=== PATIENT | female | born 1960 | race Caucasian/White ===

== ENCOUNTER 2022-10-01 13:23 | Inpatient (IN) | payer BC, OTHER ==
[2022-10-01] MEDS ORDERED: SODIUM CHLORIDE 0.9% 1,000 ML IV STA (13:24)
--- NOTE | 2022-10-01 13:30 | ED ---
Chest Pain HPI - General Chief Complaint: Chest Pain Stated Complaint: poss stemi Time Seen by Provider: 10/01/22 13:24 Source: EMS, RN notes reviewed, old records reviewed Mode of arrival: EMS Limitations: no limitations - History of Present Illness Initial Comments: This is a 62-year-old female who presents today for evaluation regards to chest pain. Patient is severe sudden onset of heaviness chest pain nausea and sweating. Persistent shortness of breath. History of diabetes no history of prior heart attack. Patient's history currently is limited by impending condition MD Complaint: chest pain -: hour(s) Onset: during rest, during exertion Pain Location: substernal, left chest, epigastric Pain Radiation: none Severity: severe Severity scale (1-10): 9 Quality: tightness, heaviness Consistency: constant Improves With: nothing Worsens With: nothing Anginal Symptoms: sense of impending doom Other Symptoms: palpitations Treatments Prior to Arrival: none - Related Data Previous Rx's Medication Instructions Recorded Acetaminophen Tab [Tylenol] 650 mg PO Q6HR PRN tab 10/04/22 Aspirin 81 mg PO DAILY #30 tab 10/04/22 Atorvastatin [Lipitor] 80 mg PO HS #30 tab 10/04/22 Blood Sugar Diagnostic [Glucose 1 each MC BID #60 strip 10/04/22 Test Strip] Dapagliflozin Propanediol [Farxiga] 5 mg PO DAILY #30 tab 10/04/22 Metoprolol Tartrate [Lopressor] 25 mg PO BID #60 tab 10/04/22 Nitroglycerin Sl Tabs [Nitrostat] 0.4 mg SUBLINGUAL Q5M PRN #20 tab 10/04/22 Prasugrel [Effient] 10 mg PO DAILY #30 tab 10/04/22 Spironolactone [Aldactone] 25 mg PO DAILY #30 tab 10/04/22 lisinopriL [Zestril] 2.5 mg PO BID #60 tab 10/04/22 metFORMIN HCL [Glucophage] 500 mg PO BID #60 tab 10/04/22 Allergies Allergy/AdvReac Type Severity Reaction Status Date / Time No Known Allergies Allergy Verified 10/01/22 16:28 Review of Systems ROS Statement: Those systems with pertinent positive or pertinent negative responses have been documented in the HPI. ROS Other: All systems not noted in ROS Statement are negative. EKG Findings - EKG Comments: EKG Findings:: EKG is sinus 79 MN 163 QRS 90 QTC 439. EKG showed positive anterior ST elevated NJ with inferior reciprocal changes - EKG Results: EKG: interpreted by LILLIANA Past Medical History Past Medical History: Diabetes Mellitus Additional Past Medical History / Comment(s): RECENT INPT FOR COLITIS AND INFLUENZA 04/17/14. NEW DX DIABETES History of Any Multi-Drug Resistant Organisms: None Reported Past Surgical History: Section, Cholecystectomy, Orthopedic Surgery, Tubal Ligation Additional Past Surgical History / Comment(s): LT KNEE SURGERY Past Anesthesia/Blood Transfusion Reactions: No Reported Reaction Past Psychological History: No Psychological Hx Reported Past Alcohol Use History: Occasional Past Drug Use History: None Reported - Past Family History Mother Family Medical History: Congestive Heart Failure (CHF) General Exam Limitations: no limitations General appearance: alert, anxious, in distress Head exam: Present: atraumatic, normocephalic, normal inspection Eye exam: Present: normal appearance, PERRL, EOMI. Absent: scleral icterus, co njunctival injection, periorbital swelling ENT exam: Present: normal exam, mucous membranes moist Neck exam: Present: normal inspection. Absent: tenderness, meningismus, lymphadenopathy Respiratory exam: Present: normal lung sounds bilaterally. Absent: respiratory distress, wheezes, rales, rhonchi, stridor Cardiovascular Exam: Present: regular rate, normal rhythm, normal heart sounds. Absent: systolic murmur, diastolic murmur, rubs, gallop, clicks GI/Abdominal exam: Present: soft, normal bowel sounds. Absent: distended, tenderness, guarding, rebound, rigid Extremities exam: Present: normal inspection, full ROM, normal capillary refill. Absent: tenderness, pedal edema, joint swelling, calf tenderness Back exam: Present: normal inspection Neurological exam: Present: alert, oriented X3, CN II-XII intact Psychiatric exam: Present: normal affect, normal mood Skin exam: Present: warm, dry, intact, normal color. Absent: rash Course Vital Signs 10/01/22 10/01/22 13:24 13:38 Temperature 98.2 F Pulse Rate 86 82 Respiratory 20 20 Rate Blood Pressure 160/102 127/86 O2 Sat by Pulse 97 97 Oximetry - Reevaluation(s) Reevaluation #1: 10/01/22 13:38 Medical records reviewed Reevaluation #2: 10/01/22 13:38 Patient symptoms are relatively unchanged active nausea vomiting with chest pain diaphoresis Reevaluation #3: 10/01/22 13:38 Patient informed of results, questions answered Reevaluation #4: 10/01/22 13:38 Was pt. sent in by a medical professional or institution? @ -no Did you speak to anyone other than the patient for history? @ -no Did you review nursing and triage notes? @ -agree Were old charts reviewed? @ -no Differential Diagnosis? @ -prior EKG interpreted by me (3pts min.)? @ -yes X-rays interpreted by me (1pt min.)? @ -yes CT interpreted by me (1pt min.)? @ -no U/S interpreted by me (1pt. min.)? @ -no What testing was considered but not performed? (CT, X-rays, U/S, labs)? Why? @ -no What meds were considered but not given? Why? @ -no Did you discuss the management of the patient with other professionals? @ -no Did you reconcile home meds? @ -no Was smoking cessation discussed for >3mins.? @ -no Was critical care preformed (if so, how long)? @ -no Were there social determinants of health that impacted care today? How? (Homelessness, low income, unemployed, alcoholism, drug addiction, transportation, low edu. Level, literacy, decrease access to med. care, usp, rehab)? @ -no Was there de-escalation of care discussed even if they declined? (Discuss DNR or withdrawal of care, Hospice)? @ -no What co-morbidities impacted this encounter? (DM, HTN, Smoking, COPD, CAD, Cancer, CVA, Hep., AIDS, mental health diagnosis, sleep apnea, morbid obesity)? @ -none Was patient admitted / discharged? @ -62 female to the emergency department was severe chest pain. Patient has ST elevated NJ prehospital EKG with nausea vomiting here in the ER patient be admitted and sent to the catheterization lab Admitted Undiagnosed new problem with uncertain prognosis? @ -no Drug Therapy requiring intensive monitoring for toxicity (Heparin, Nitro, Insulin, Cardizem)? @ -no Were any procedures done? @ -no Diagnosis/symptom? @ -ST EOMI Acute, or Chronic, or Acute on Chronic? @ -no Uncomplicated (without systemic symptoms) or Complicated (systemic symptoms)? @ -uncomplicated Side effects of treatment? @ -no Exacerbation, Progression, or Severe Exacerbation] @ -no Poses a threat to life or bodily function? @ -Gas ST elevated NJ Reevaluation #5: 10/01/22 13:38 Differential Chest Pain: Stable Angina, Unstable Angina, STEMI, NSTEMI Aortic Dissection, Pneumothorax, Musculoskeletal, Esophageal Spasm GERD, Cholecystitis, Pancreatitis, Zoster, this is not meant to be an all-inclusive list. - Consultations Consultation #1: Spoke with Dr. Oates he does see patient in the emergency department and takes to label cutter Consultation #2: Spoke with [facility] regarding admission there agreeable Chest Pain MDM - MDM 62 female to the emergency department for evaluation of chest pain history of diabetes left-sided chest. Sudden onset. Patient states that she has persistent left-sided chest pain here in the ER with active nausea vomiting although pain is improving. Patient does have ST elevated NJ on EKG and will admit for cardiac catheterization Critical Care Time Critical Care Time: Yes Total Critical Care Time: 31 Disposition Clinical Impression: ST elevation myocardial infarction (STEMI) Disposition: ADMITTED IP TO THIS HOSP Condition: Stable Is patient prescribed a controlled substance at d/c from ED?: No Time of Disposition: 13:35
[2022-10-01] MEDS ORDERED: ONDANSETRON 4 MG/2 ML VIAL IVP STA (13:34)
[2022-10-01] MEDS ORDERED: MORPHINE SULFATE 4 MG/ML SYRINGE IV PRN (13:35)
[2022-10-01] MEDS ORDERED: HEPARIN SODIUM 1,000 UN/ML (10ML VL) IV ONE ×2 (13:35→13:57)
[2022-10-01] MEDS ORDERED: NITROGLYCERIN SL TABS 0.4 MG TAB SUBLINGUAL PRN ×2 (13:35→14:34)
[2022-10-01] MEDS: HEPARIN SODIUM 1,000 UN/ML (10ML VL) MISCELLANE ONE ×2 (13:35→13:44)
[2022-10-01] MEDS ORDERED: HYDROmorphone 1 MG/ML 1 ML SYRINGE IVP STA (13:36)
[2022-10-01 13:37] LABS: Glucose,Whole Blood 308 mg/dL (70-110)
[2022-10-01] MEDS ORDERED: fentaNYL (PF) 50 MCG/ML 2 ML AMP ONE (13:37)
[2022-10-01] MEDS ORDERED: HEPARIN SOD,PORK IN 0.45% NACL 25,000 UNIT in 0.45% NACL 1 250ML.BAG IV SCH (13:45)
[2022-10-01 13:47] LABS: Basophils # (A) 0.1 k/uL (0-0.2); Basophils % (A) 1 %; Eosinophils # (A) 0.2 k/uL (0-0.7); Eosinophils % (A) 3 %; HGB 15.4 gm/dL (11.4-16.0); Lymphocytes # (A) 3.2 k/uL (1.0-4.8); Lymphocytes % (A) 41 %; MCH 30.2 pg (25.0-35.0); MCHC 33.6 g/dL (31.0-37.0); Mean Platelet Volume 7.2; Monocytes # (A) 0.4 k/uL (0-1.0); Monocytes % (A) 5 %; Neutrophils # (A) 3.6 k/uL (1.3-7.7); Neutrophils % (A) 47 %; Platelet Count 268 k/uL (150-450); RBC 5.11 m/uL (3.80-5.40); RDW 12.4 % (11.5-15.5); WBC 7.8 k/uL (3.8-10.6)
[2022-10-01] MEDS ORDERED: IV FLUID CONTINUATION 1,000 ML IV ONE (13:47)
[2022-10-01] MEDS ORDERED: LIDOCAINE 1% INJ 10MG/ML (5 ML VIAL-PF) SQ ONE (13:50)
[2022-10-01] MEDS ORDERED: VERAPAMIL SYRINGE (5 MG/10 ML) INTRAARTER ONE (13:51)
[2022-10-01] MEDS ORDERED: PRASUGREL 10 MG TAB ONE (13:57)
[2022-10-01] MEDS ORDERED: PRASUGREL 10 MG TAB PO ONE (13:59)
[2022-10-01] MEDS ORDERED: MIDAZOLAM 2 MG/2 ML VIAL IV ONE (14:00)
[2022-10-01 14:05] LABS: ALT 23 U/L (4-34); AST 27 U/L (14-36); African American GFR (CKD) >90 (>60 ml/min/1.73 sqM); Alkaline Phosphatase 139 U/L (38-126); Anion Gap 13 mmol/L; Blood Urea Nitrogen 12 mg/dL (7-17); Calcium 8.6 mg/dL (8.4-10.2); Carbon Dioxide 17 mmol/L (22-30); Chloride 102 mmol/L (98-107); Glucose 319 mg/dL (74-99); Lipase 123 U/L (23-300); Magnesium 1.5 mg/dL (1.6-2.3); Non-African American GFR(CKD) >90 (>60 ml/min/1.73 sqM); Potassium 3.9 mmol/L (3.5-5.1); Sodium 132 mmol/L (137-145); Total Bilirubin 0.8 mg/dL (0.2-1.3); Total Protein 7.2 g/dL (6.3-8.2)
[2022-10-01 14:06] LABS: Prothrombin Time 10.1 sec (9.0-12.0)
--- NOTE | 2022-10-01 14:10 | XR ---
EXAMINATION TYPE: XR chest 1V portable DATE OF EXAM: 10/01/2022 1:37 PM COMPARISON: Chest radiographs from 04/17/2014 TECHNIQUE: XR chest 1V portable Frontal view of the chest. CLINICAL INDICATION:Female, 62 years old with history of chest pain; FINDINGS: Lungs/Pleura: There is no evidence of pleural effusion, focal consolidation, or pneumothorax. Pulmonary vascularity: Unremarkable. Heart/mediastinum: Cardiomediastinal silhouette is unremarkable. Musculoskeletal: No acute osseous pathology. IMPRESSION: Low lung volumes with a generalized hazy appearance to represent atelectasis.
[2022-10-01 14:17] LABS: Partial Thromboplastin Time 20.2 sec (22.0-30.0)
[2022-10-01] MEDS ORDERED: IOPAMIDOL-370 100ML BTL INJ ONE ×2 (14:25)
[2022-10-01] MEDS ORDERED: ONDANSETRON 4 MG/2 ML VIAL IVP ONE (14:32)
[2022-10-01] MEDS ORDERED: MAG HYDROX/AL HYDROX/SIMETH 30 ML CUP PO PRN (14:34)
[2022-10-01] MEDS ORDERED: RX INFO: IV CONTRAST WAS GIVEN 1 EACH MISC MISCELLANE PRN (14:34)
[2022-10-01] MEDS ORDERED: ZOLPIDEM 5 MG TAB PO PRN (14:34)
[2022-10-01] MEDS ORDERED: ATROPINE SULFATE 0.1 MG/ML 10ML SYRINGE IV PRN (14:34)
[2022-10-01 14:43] LABS: Glucose,Whole Blood 345 mg/dL (70-110)
--- NOTE | 2022-10-01 14:44 | P.CRDCN ---
History of Present Illness Consult date: 10/01/22 History of present illness: History of Present Illness: The patient is a 62-year-old female with a history of diabetes, does not follow with her physician does not take any medications who presented with acute onset chest discomfort with dyspnea and was found to have evidence of acute anterior wall myocardial infarction. The patient was evaluated in the cardiac blossom terization laboratory. She has no prior history of cardiac disease. Has not seen a physician in a while. She has no peripheral edema, PND or orthopnea. She denies any dizziness, palpitations or syncope. She has a remote history of smoking but not recently. She has no history of malignant arrhythmia. Medications: Non- Review of Systems: Respiratory: No history of asthma, bronchitis or recent cough. GI: No nausea or vomiting . No history of peptic ulcer disease. No recent GI bleed. : No hematuria or dysuria. Nervous System: No stroke or seizure. Physical Examination: 62-year-old female alert, oriented having severe chest discomfort ,Blood pressure 130/70, Heart rate 70 Head: Normocephalic. Eyes: Sclerae nonicteric. Neck: Good carotid upstroke, no bruit, no jugular venous distention. Lungs: Clear to auscultation. Heart: Regular rate and rhythm, S1-S2, no S3, no rub. No murmur. Abdomen: Soft nontender, positive bowel sounds no organomegaly. Obese Extremities: No edema, intact distal pulses. Labs: Hemoglobin 15.4, BUN 12, creatinine 0.49, glucose 319. Troponin 0.054. Chest x-ray was possible atelectasis EKG: Sinus mechanism with ST elevation in lead 1, aVL and V1 and V2 consistent with anterolateral myocardial infarction with ST depression and T-wave inversion in lead 3 and aVF Impression: 1. Acute anterior wall myocardial infarction 2. Diabetes, not treated 3. Obesity Plan: 1. Proceed with emergent cardiac catheterization, the risks and the complications were discussed with the patient 2. Obtain an echocardiogram with Doppler 3. Management of diabetes per primary care physician 4. Depending on the outcome of her cardiac catheterization further recomme ndations will be made 5. Thank you for this consult we will follow with you Past Medical History Past Medical History: Diabetes Mellitus Additional Past Medical History / Comment(s): RECENT INPT FOR COLITIS AND INFLUENZA 04/17/14. NEW DX DIABETES History of Any Multi-Drug Resistant Organisms: None Reported Past Surgical History: Section, Cholecystectomy, Orthopedic Surgery, Tubal Ligation Additional Past Surgical History / Comment(s): LT KNEE SURGERY Past Anesthesia/Blood Transfusion Reactions: No Reported Reaction Past Psychological History: No Psychological Hx Reported Past Alcohol Use History: Occasional Past Drug Use History: None Reported - Past Family History Mother Family Medical History: Congestive Heart Failure (CHF) Medications and Allergies Home Medications Medication Instructions Recorded Confirmed Type Dapagliflozin Propanediol [Farxiga] 5 mg PO DAILY 06/05/14 06/05/14 History Allergies Allergy/AdvReac Type Severity Reaction Status Date / Time No Known Allergies Allergy Verified 06/05/14 10:18 Physical Exam Vitals: Vital Signs Temp Pulse Resp BP Pulse Ox 10/01/22 13:38 82 20 127/86 97 10/01/22 13:24 98.2 F 86 20 160/102 97 Intake and Output 09/30/22 10/01/22 10/01/22 22:59 06:59 14:59 Intake Total 150 Balance 150 Intake: IV 150 Other: Weight 92.079 kg Results 10/01/22 13:25 10/01/22 13:25 Cardiac Enzymes 10/01/22 10/01/22 Range/Units 13:25 13:25 AST 27 (14-36) U/L Troponin I 0.054 H* (0.000-0.034) ng/mL Coagulation 10/01/22 Range/Units 13:25 PT 10.1 (9.0-12.0) sec APTT 20.2 L (22.0-30.0) sec CBC 10/01/22 Range/Units 13:25 WBC 7.8 (3.8-10.6) k/uL RBC 5.11 (3.80-5.40) m/uL Hgb 15.4 (11.4-16.0) gm/dL Hct 46.0 (34.0-46.0) % Plt Count 268 (150-450) k/uL Comprehensive Metabolic Panel 10/01/22 Range/Units 13:25 Sodium 132 L (137-145) mmol/L Potassium 3.9 (3.5-5.1) mmol/L Chloride 102 (98-107) mmol/L Carbon Dioxide 17 L (22-30) mmol/L BUN 12 (7-17) mg/dL Creatinine 0.49 L (0.52-1.04) mg/dL Glucose 319 H (74-99) mg/dL Calcium 8.6 (8.4-10.2) mg/dL AST 27 (14-36) U/L ALT 23 (4-34) U/L Alkaline Phosphatase 139 H (38-126) U/L Total Protein 7.2 (6.3-8.2) g/dL Albumin 4.0 (3.5-5.0) g/dL Current Medications Generic Name Dose Route Start Last Admin Trade Name Freq PRN Reason Stop Dose Admin Al Hydroxide/Mg Hydroxide 30 ml 10/01/22 14:34 Mag Hydrox/Al Hydrox/Simeth 30 Ml Cup PO Q4HR PRN Heartburn Aspirin 81 mg 10/02/22 09:00 Aspirin 81 Mg PO DAILY SCAR Aspirin 81 mg 10/02/22 09:00 Aspirin 81 Mg PO DAILY SCAR Atorvastatin Calcium 80 mg 10/01/22 21:00 Atorvastatin 80 Mg Tab PO 11/01/22 09:01 HS SCAR Atropine Sulfate 0.5 mg 10/01/22 14:34 Atropine Sulfate 0.1 Mg/Ml 10ml Syringe IV ONCE PRN Symptomatic Bradycardia Sodium Chloride 1,000 mls @ 100 mls/hr 10/01/22 13:24 10/01/22 13:34 Saline 0.9% IV 10/01/22 23:23 100 mls/hr .Q10H STA Administration Sodium Chloride 1,000 mls @ 100 mls/hr 10/01/22 13:45 Saline 0.9% IV 10/31/22 13:46 .Q10H SCAR Sodium Chloride 1,000 ml/ IV 1,000 mls @ 92.079 mls/hr 10/01/22 14:45 Solution IV 10/01/22 17:46 .[id number] SCAR 1 ML/KG/HR Lisinopril 2.5 mg 10/01/22 21:00 Lisinopril 2.5 Mg Tab PO BID SCAR Metoprolol Tartrate 25 mg 10/01/22 21:00 Metoprolol Tartrate 25 Mg Tab PO 10/31/22 21:01 BID [facility] Miscellaneous Information 1 each 10/01/22 14:34 Rx Info: Iv Contrast Was Given 1 Each Misc MISCELLANE 10/03/22 14:34 DAILY PRN Per Protocol Morphine Sulfate 4 mg 10/01/22 13:35 Morphine Sulfate 4 Mg/Ml Syringe IV 10/31/22 13:36 Q4HR PRN Chest Pain Nitroglycerin 0.4 mg 10/01/22 13:35 Nitroglycerin Sl Tabs 0.4 Mg Tab SUBLINGUAL 10/31/22 13:36 Q5M PRN Chest Pain Nitroglycerin 0.4 mg 10/01/22 14:34 Nitroglycerin Sl Tabs 0.4 Mg Tab SUBLINGUAL Q5M PRN Chest Pain Prasugrel 10 mg 10/02/22 09:00 Prasugrel 10 Mg Tab PO DAILY [facility] Protocol Spironolactone 25 mg 10/02/22 09:00 Spironolactone 25 Mg Tab PO DAILY [facility] Zolpidem Tartrate 5 mg 10/01/22 14:34 Zolpidem 5 Mg Tab PO HS PRN Insomnia Intake and Output 09/30/22 10/01/22 10/01/22 22:59 06:59 14:59 Intake Total 150 Balance 150 Intake: IV 150 Other: Weight 92.079 kg Patient Weight 10/02/22 06:59 Weight 92.079 kg 10/01/22 13:25 10/01/22 13:25
[2022-10-01] MEDS ORDERED: SODIUM CHLORIDE 0.9% 1,000 ML in EMPTY BAG 1 BAG IV SCH (14:45)
[2022-10-01] MEDS: SODIUM CHLORIDE 0.9% 1,000 ML IV SCH ×2 (14:49→23:23)
--- NOTE | 2022-10-01 14:52 | P.CARDCATH ---
Date of Procedure: 10/01/22 Description of Procedure: Cardiac Catheterization: The patient is a 62-year-old female with a history of diabetes, not treated, who presented with an acute episode of chest discomfort and EKG changes consistent with anterior wall myocardial infarction. Recommendations were made regarding cardiac catheterization, the risks and the complications were discussed with the patient who is in full understanding and agreement. Procedure Description: Patient was brought to quality assurance lab technician in fasting semi-sedated state after receiving Fentanyl and Benadryl achieiving moderate conscious sedated state. Using Xylocaine Anesthesia and Seldinger technique, a 6-Norwegian sheath was introduced in the right radial artery . Subsequently, selective coronary angiography was performed using a 5-Norwegian 3.5 bend Teja catheter and a 6-Norwegian EBU 3.75 guiding catheter. Multiple views of the coronary artery including hemiaxial views were obtained. The right Teja catheter was used to cross the aortic valve and LVEDP was calculated. PCI: Using the 6-Norwegian EBU 3.75 guiding catheter and after cannulating the left main, a 0.014 BMW J-wire was positioned in the distal LAD with the help of a fine cross microcatheter. After removing the microcatheter and 2.5 X 12 mm Treck balloon was advanced and multiple inflation at maximum of 8 abiola were done subsequently a [email or web address] eye intravascular ultrasound catheter was introduced and imaging was performed. After removing the catheter 3.0 x 38 mm Xience rakel point was deployed at 16 abiola. After removing the balloon repeat intravascular ultrasound was performed and subsequently a 3.5X20 mm NC Treck was advanced in the proximal segment of the stent and inflation at 12 abiola were done. After removing the wire images were obtained and revealed stable successful stenting. Subsequently images of the right coronary artery were performed. Following that, catheter and sheath were removed. Hemostasis was obtained with deployment of TR band . There was no immediate complication. Patient was returned to room in stable condition. Of note, the patient received a total of 4000 units of intravenous heparin as well as intra-arterial verapamil. She received an oral loading dose of Effient, her ACT was monitored. At the end of the procedure her chest discomfort has improved and her EKG has improved. Findings: Fluoroscopy: There is significant calcifications involving the LAD. Left main: This is a large size vessel, bifurcating into LAD and left circumflex, left main has no high-grade stenosis LAD: This vessel is subtotally occluded proximally and after the takeoff of the first septal bulk plant manager there is another 99% stenosis with slow antegrade flow. Left circumflex: This is a nondominant vessel giving rise to obtuse marginal branch, the first one is large in caliber. The mid segment of the first obtuse marginal branch has a 60-70% stenosis, there is another 80% stenosis at the takeoff of the small second obtuse marginal branch the rest of the vessel has no high-grade stenosis. RCA: This is a dominant vessel, large in caliber, bifurcating into PDA and PLV the mid RCA has 20-30% plaque, the rest of the vessel has no high-grade stenosis. Left Ventriculogram: Not performed Hemodynamics: There was no gradient across the aortic valve , LVEDP was 20-24 mm Hg Conclusion: 1. Calcified LAD 2. Subtotally occluded proximal and mid LAD 3. Moderate disease in OM1 and mild disease in mid RCA 4. Successful stenting of the LAD with reduction of stenosis from 99% to 0% with intravascular ultrasound imaging Recommendations: The patient will continue on aspirin and Effient for 1 year without any interruption in addition to aggressive coronary risks modifications. The findings and the recommendations were discussed with the patient and she is in full understanding and agreement. Duration of sedation is 35 minutes.
[2022-10-01] MEDS ORDERED: DEXTROSE 50% SYRINGE 50 ML IVP PRN ×2 (15:06)
[2022-10-01] MEDS ORDERED: ONDANSETRON 4 MG/2 ML VIAL IVP PRN (16:57)
[2022-10-01 17:00] LABS: Glucose,Whole Blood 324 mg/dL (70-110)
[2022-10-01] MEDS: INSULIN ASPART (NovoLOG) 100 UNIT/ML VIAL SQ SCH ×2 (17:01→20:55)
[2022-10-01] MEDS ORDERED: ACETAMINOPHEN TAB 325 MG TAB PO PRN (18:45)
[2022-10-01 20:20] LABS: Glucose,Whole Blood 267 mg/dL (70-110)
[2022-10-01] MEDS: ATORVASTATIN 80 MG TAB PO SCH (20:53)
[2022-10-01] MEDS: METOPROLOL TARTRATE 25 MG TAB PO SCH (20:53)
[2022-10-02 04:43] LABS: Mean Platelet Volume 7.4; Platelet Count 255 k/uL (150-450)
[2022-10-02 04:52] LABS: ALT 35 U/L (4-34); AST 207 U/L (14-36); African American GFR (CKD) >90 (>60 ml/min/1.73 sqM); Albumin 3.6 g/dL (3.5-5.0); Alkaline Phosphatase 95 U/L (38-126); Anion Gap 8 mmol/L; Blood Urea Nitrogen 12 mg/dL (7-17); Calcium 8.7 mg/dL (8.4-10.2); Carbon Dioxide 28 mmol/L (22-30); Chloride 99 mmol/L (98-107); Glucose 176 mg/dL (74-99); Non-African American GFR(CKD) >90 (>60 ml/min/1.73 sqM); Potassium 4.4 mmol/L (3.5-5.1); Sodium 135 mmol/L (137-145); Total Bilirubin 0.8 mg/dL (0.2-1.3); Total Protein 6.4 g/dL (6.3-8.2)
[2022-10-02 06:17] LABS: Glucose,Whole Blood 187 mg/dL (70-110)
[2022-10-02] MEDS: INSULIN ASPART (NovoLOG) 100 UNIT/ML VIAL SQ SCH ×5 (06:26→20:50)
--- NOTE | 2022-10-02 07:39 | P.PN ---
Subjective Progress Note Date: 10/02/22 PROGRESS NOTE The patient is a 62-year-old female with a history of diabetes, not followed by a physician who presented with an acute anterior wall myocardial infarction and underwent stenting of the LAD. She feels better today. She has no further anginal pain. Her breathing is stable. She continues to be in sinus mechanism and hemodynamically stable. She denies any dizziness or palpitations. Her EKG shows improvement in her ST segment elevation. Medications: Aspirin, the patellar 80 mg daily, Zestril 2.5 mg twice a day, metoprolol 25 mg twice a day, Aldactone 25 mg daily, Effient 10 mg daily in addition to insulin PHYSICAL EXAMINATION: Blood pressure 111/70 heart rate 70 LUNGS: Clear to auscultation HEART: Regular rate and rhythm, S1, S2. No S3. No systolic murmur ABDOMEN: Soft, nontender, no organomegaly EXTREMETIES: No edema, right radial pulse intact LAB: Potassium 4.4, BUN 12, creatinine 0.52. Troponin peak 26.8. Hemoglobin A1c 10.4 IMPRESSION: 1. Acute anterior wall myocardial infarction status post stenting of the LAD 2. Diabetes not treated prior to admission PLAN: 1. Continue present therapy 2. Treatment of diabetes per primary care 3. Increase physical activity and if stable transfer to telemetry in the afternoon 4. Obtain an echocardiogram with Doppler 5. Social service evaluation 6. Depending on her progress further recommendations will be made Objective - Vital Signs Vital signs: Vital Signs Temp 97.8 F 10/02/22 04:00 Pulse 77 10/02/22 07:00 Resp 15 10/02/22 07:00 BP 111/78 10/02/22 07:00 Pulse Ox 95 10/02/22 07:00 FiO2 Intake & Output 10/01/22 10/02/22 10/02/22 18:59 06:59 18:59 Intake Total 650 160 0 Output Total 900 Balance -250 160 0 Weight 92.079 kg 90 kg Intake: IV 150 160 0 0.9 160 0 Intake, IV Titration 500 Amount Sodium Chloride 0.9% 1, 500 000 ml In Empty Bag 1 bag @ 1 ML/KG/HR 92.079 mls/ hr IV .[id number] SCAR Rx#: [id number] Output: Urine 900 Other: Voiding Method Toilet # Voids 1 - Labs CBC & Chem 7: 10/02/22 03:44 10/02/22 03:44 Labs: Abnormal Lab Results - Last 24 Hours (Table) 10/01/22 10/01/22 10/01/22 Range/Units 13:25 13:25 13:25 APTT 20.2 L (22.0-30.0) sec Sodium 132 L (137-145) mmol/L Carbon Dioxide 17 L (22-30) mmol/L Creatinine 0.49 L (0.52-1.04) mg/dL Glucose 319 H (74-99) mg/dL POC Glucose (mg/dL) (70-110) mg/dL Hemoglobin A1c (0.0-6.0) % Magnesium 1.5 L (1.6-2.3) mg/dL AST (14-36) U/L ALT (4-34) U/L Alkaline Phosphatase 139 H (38-126) U/L Troponin I 0.054 H* (0.000-0.034) ng/mL 10/01/22 10/01/22 10/01/22 Range/Units 13:34 14:42 14:56 APTT (22.0-30.0) sec Sodium (137-145) mmol/L Carbon Dioxide (22-30) mmol/L Creatinine (0.52-1.04) mg/dL Glucose (74-99) mg/dL POC Glucose (mg/dL) 308 H 345 H (70-110) mg/dL Hemoglobin A1c (0.0-6.0) % Magnesium (1.6-2.3) mg/dL AST (14-36) U/L ALT (4-34) U/L Alkaline Phosphatase (38-126) U/L Troponin I 2.720 H* (0.000-0.034) ng/mL 10/01/22 10/01/22 10/01/22 Range/Units 14:56 16:59 18:16 APTT (22.0-30.0) sec Sodium (137-145) mmol/L Carbon Dioxide (22-30) mmol/L Creatinine (0.52-1.04) mg/dL Glucose (74-99) mg/dL POC Glucose (mg/dL) 324 H (70-110) mg/dL Hemoglobin A1c 10.4 H (0.0-6.0) % Magnesium (1.6-2.3) mg/dL AST (14-36) U/L ALT (4-34) U/L Alkaline Phosphatase (38-126) U/L Troponin I 26.800 H* (0.000-0.034) ng/mL 10/01/22 10/02/22 10/02/22 Range/Units 20:19 03:44 06:16 APTT (22.0-30.0) sec Sodium 135 L (137-145) mmol/L Carbon Dioxide (22-30) mmol/L Creatinine (0.52-1.04) mg/dL Glucose 176 H (74-99) mg/dL POC Glucose (mg/dL) 267 H 187 H (70-110) mg/dL Hemoglobin A1c (0.0-6.0) % Magnesium (1.6-2.3) mg/dL AST 207 H (14-36) U/L ALT 35 H (4-34) U/L Alkaline Phosphatase (38-126) U/L Troponin I (0.000-0.034) ng/mL
[2022-10-02] MEDS ORDERED: ATORVASTATIN 80 MG TAB PO SCH (09:00)
[2022-10-02] MEDS ORDERED: ASPIRIN 325 MG TAB PO SCH (09:00)
[2022-10-02] MEDS ORDERED: ASPIRIN 81 MG PO SCH (09:00)
[2022-10-02 09:27] LABS: HDL Cholesterol 49.1 mg/dL (40.00-60.00)
[2022-10-02] MEDS: PRASUGREL 10 MG TAB PO SCH (09:35)
[2022-10-02] MEDS: SPIRONOLACTONE 25 MG TAB PO SCH (09:35)
[2022-10-02] MEDS: ASPIRIN 81 MG PO SCH (09:35)
[2022-10-02] MEDS: METOPROLOL TARTRATE 25 MG TAB PO SCH ×2 (09:35→20:50)
[2022-10-02 10:11] VITALS: BMI 35.1
--- NOTE | 2022-10-02 10:34 | CA ---
Transthoracic Echo Report Name: Lorenza Cartagena Age: 62 Gender: F : 1960 Exam Date: 10/02/2022 08:41 Exam Location: [place] [facility] Ht (in): 63 Wt (lb): 203 Ordering Physician: Josselyn Oates MD ([id number]) Attending/Referring Phys: School Bus Technician Jose Juan Hunt Procedure CPT: Indications: [place] Cardiac Hx: Technical Quality: Technically difficult study Contrast 1: Lumason Total Dose (mL): 5 Contrast 2: Agitated Saline Total Dose (mL): 10 MEASUREMENTS (Male / Female) Normal Values 2D ECHO LV Diastolic Diameter PLAX 3.7 cm 4.2 - 5.9 / 3.9 - 5.3 cm LV Systolic Diameter PLAX 2.7 cm IVS Diastolic Thickness 1.5 cm 0.6 - 1.0 / 0.6 - 0.9 cm LVPW Diastolic Thickness 1.4 cm 0.6 - 1.0 / 0.6 - 0.9 cm LV Relative Wall Thickness 0.8 RV Internal Dim ED PLAX 2.8 cm LV Diastolic Volume MOD BP 52.9 cm??? 67 - 155 / 56 - 104 cm??? LV Systolic Volume MOD BP 30.7 cm??? 22 - 58 / 19 - 49 cm??? LV Ejection Fraction MOD BP 41.9 % >= 55 % LV Diastolic Volume MOD 4C 57.9 cm??? LV Systolic Volume MOD 4C 33.7 cm??? LV Ejection Fraction MOD 4C 41.7 % LV Diastolic Length 4C 6.8 cm LV Systolic Length 4C 6.0 cm LV Diastolic Volume MOD 2C 48.4 cm??? LV Systolic Volume MOD 2C 26.8 cm??? LV Ejection Fraction MOD 2C 44.7 % LV Diastolic Length 2C 6.8 cm LV Systolic Length 2C 5.7 cm LA Volume 42.9 cm??? 18 - 58 / 22 - 52 cm??? DOPPLER AV Peak Velocity 124.5 cm/s AV Peak Gradient 6.2 mmHg LVOT Peak Velocity 82.1 cm/s LVOT Peak Gradient 2.7 mmHg MV Peak Velocity 94.1 cm/s MV Peak Gradient 3.5 mmHg MV Mean Velocity 42.2 cm/s MV Mean Gradient 0.9 mmHg MV Velocity Time Integral 30.3 cm MR Peak Velocity 305.0 cm/s MR Peak Gradient 37.2 mmHg Mitral E Point Velocity 65.2 cm/s Mitral A Point Velocity 87.3 cm/s Mitral E to A Ratio 0.7 MV Deceleration Time 188.6 ms FINDINGS Left Ventricle Left ventricular ejection fraction is estimated at 35-40 %. Right Ventricle Normal right ventricular size. Right Atrium Normal right atrial size. Left Atrium Normal left atrial size. Mitral Valve Structurally normal mitral valve. Mild MR. Aortic Valve Not well visualized. Grossly normal. No aortic valve stenosis or regurgitation. Tricuspid Valve Structurally normal tricuspid valve. Trace TR. Pulmonic Valve Pulmonic valve not well visualized. No pulmonic regurgitation. Pericardium Normal pericardium. Aorta Normal size aortic root and proximal ascending aorta. CONCLUSIONS Moderate LV systolic dysfunction with an ejection fraction of 35-40% mild mitral regurgitation Previewed by: Dr. Riley Ambriz MD (Electronically Signed) Final Date: 02 October 2022 10:33
[2022-10-02] MEDS: SODIUM CHLORIDE 0.9% 1,000 ML IV SCH ×2 (10:51→16:34)
[2022-10-02 12:49] LABS: Glucose,Whole Blood 262 mg/dL (70-110)
--- NOTE | 2022-10-02 13:53 | P.HPIM ---
History of Present Illness H&P Date: 10/02/22 This is a 62 year old female with medical history significant for diabetes mellitus, never smoker. Patient presents to the hospital with complaints of chest pain with sudden onset, chest pain is reported as heaviness with associated with nausea and diaphoresis. No prior history of congestive heart failure, heart attack or stroke. Patient reports the pain was so severe at home decided to come to the hospital for further evaluation. Initial work up on EKG shows sinus rhythm with heart rate of 79, there is ST elevation in multiple leads. Troponin elevation of 0.054, 2.70 and 26.8. Patient was hyponatremic with a sodium 132 on admission, blood glucoses 319 on admission. Hemoglobin A1c is 10.4. Magnesium 1.5. Patient has elevated liver enzymes. Patient is admitted for acute ST elevation AL and taken to the cardiac engineer geophysical laboratory, patient was given aspirin. Patient had a sub-totally occluded proximal and mid LAD with moderate disease in OM1 and mild disease in the RCA, patient underwent s uccessful stenting of LAD reduction of stenosis from 99-0%. Patient has been started on aspirin and Effient dual antiplatelet therapy for 1 year as well as aggressive risk factor modification. Patient is evaluated in the intensive care unit is being followed closely by cardiology. States she was recently hospitalized for a cyst on her buttock and was diagnosed with diabetes a few months ago during that hospital stay. She was discharged home on insulin and was unable to afford it as she is on a fixed income, has not been on any diabetic medications. Denies smoking, no alcohol. Currently chest pain free at the time of my assessment. REVIEW OF SYSTEMS: CONSTITUTIONAL: No fever, no malaise, no fatigue. HEENT: No recent visual problems or hearing problems. Denied any sore throat. CARDIOVASCULAR: No chest pain, orthopnea, PND, no palpitations, no syncope. PULMONARY: No shortness of breath, no cough, no hemoptysis. GASTROINTESTINAL: No diarrhea, no nausea, no vomiting, no abdominal pain. NEUROLOGICAL: No headaches, no weakness, no numbness. HEMATOLOGICAL: Denies any bleeding or petechiae. GENITOURINARY: Denies any burning micturition, frequency, or urgency. MUSCULOSKELETAL/RHEUMATOLOGICAL: Denies any joint pain, swelling, or any muscle pain. ENDOCRINE: Denies any polyuria or polydipsia. The rest of the 14-point review of systems is negative. PHYSICAL EXAMINATION: GENERAL: The patient is alert and oriented x3, not in any acute distress. Well developed, well nourished. HEENT: Pupils are round and equally reacting to light. EOMI. No scleral icterus. No conjunctival pallor. Normocephalic, atraumatic. No pharyngeal erythema. No thyromegaly. CARDIOVASCULAR: S1 and S2 present. No murmurs, rubs, or gallops. PULMONARY: Chest is clear to auscultation, no wheezing or crackles. ABDOMEN: Soft, nontender, nondistended, normoactive bowel sounds. No palpable organomegaly. MUSCULOSKELETAL: No joint swelling or deformity. EXTREMITIES: No cyanosis, clubbing, or pedal edema. NEUROLOGICAL: Gross neurological examination did not reveal any focal deficits. SKIN: No rashes. Assessment Chest pain secondary to acute ST elevation AL status post stenting of LAD Troponin elevation secondary to above Diabetes mellitus type 2 uncontrolled with hemoglobin A1c of 10.4, recently diagnosed Hyponatremia Hypomagnesemia Morbidy obesity with BMI of 35.1 Prophylaxis DVT prophylaxis Full Code Plan Echocardiogram pending Patient is on dual antiplatelet therapy as well as Lipitor Patient was started on lisinopril 2.5 twice a day as well as metoprolol 25 twice a day. Continue monitoring in the intensive care unit on manager cardiac cath. Cardiology following Continue Accu-Cheks before meals at bedtime and patient be started on oral diabetic medication with metformin on discharge and consider starting an SGLT2. The impression and plan of care has been dictated by Heather Jay Nurse Practitioner as directed. Dr. Rey MD I have performed a history and physical examination and medical decision making of this patient, discussed the same with the dictator, and agree with the dictators assessment and plan as written, documented as a scribe. Based on total visit time, I have performed more than 50% of this visit. Past Medical History Past Medical History: Diabetes Mellitus Additional Past Medical History / Comment(s): RECENT INPT FOR COLITIS AND INFLUENZA 04/17/14. NEW DX DIABETES History of Any Multi-Drug Resistant Organisms: None Reported Past Surgical History: Section, Cholecystectomy, Orthopedic Surgery, Tubal Ligation Additional Past Surgical History / Comment(s): LT KNEE SURGERY Past Anesthesia/Blood Transfusion Reactions: No Reported Reaction Past Psychological History: No Psychological Hx Reported Past Alcohol Use History: Occasional Past Drug Use History: None Reported - Past Family History Mother Family Medical History: Congestive Heart Failure (CHF) Medications and Allergies Home Medications Medication Instructions Recorded Confirmed Type No Known Home Medications 10/01/22 10/01/22 History Allergies Allergy/AdvReac Type Severity Reaction Status Date / Time No Known Allergies Allergy Verified 10/01/22 16:28 Physical Exam Vitals: Vital Signs Temp Pulse Pulse Resp BP Pulse Ox 10/02/22 07:39 95 10/02/22 07:00 77 15 111/78 95 10/02/22 06:00 64 12 115/71 97 10/02/22 05:00 68 12 113/74 95 10/02/22 04:00 97.8 F 67 13 121/77 96 10/02/22 03:00 67 15 113/74 94 L 10/02/22 02:00 65 10 L 141/91 93 L 10/02/22 01:00 62 12 132/81 96 10/02/22 00:00 97.8 F 67 12 118/68 96 10/01/22 23:24 68 14 118/68 95 10/01/22 23:00 66 14 134/76 95 10/01/22 22:00 74 14 95 10/01/22 21:00 97.6 F 80 12 116/67 96 10/01/22 20:00 75 14 130/87 95 10/01/22 19:00 71 15 141/103 94 L 10/01/22 18:00 71 6 L 142/86 93 L 10/01/22 17:00 64 7 L 140/86 97 10/01/22 16:00 98.1 F 67 14 131/80 95 10/01/22 15:49 65 12 10/01/22 15:00 97.5 F L 66 6 L 146/84 97 10/01/22 14:42 70 7 L 91 L 10/01/22 13:38 82 20 127/86 97 10/01/22 13:24 98.2 F 86 20 160/102 97 Intake and Output 10/01/22 10/02/22 10/02/22 22:59 06:59 14:59 Intake Total 640 20 0 Output Total 900 Balance -260 20 0 Intake: IV 140 20 0 0.9 140 20 0 Intake, IV Titration 500 Amount Sodium Chloride 0.9% 1, 500 000 ml In Empty Bag 1 bag @ 1 ML/KG/HR 92.079 mls/ hr IV .[id number] [facility] Rx#: [id number] Output: Urine 900 Other: Voiding Method Bedpan Toilet # Voids 1 Weight 90 kg Results CBC & Chem 7: 10/02/22 03:44 10/02/22 03:44 Labs: Abnormal Lab Results - Last 24 Hours (Table) 10/01/22 10/01/22 10/01/22 Range/Units 13:25 13:25 13:25 APTT 20.2 L (22.0-30.0) sec Sodium 132 L (137-145) mmol/L Carbon Dioxide 17 L (22-30) mmol/L Creatinine 0.49 L (0.52-1.04) mg/dL Glucose 319 H (74-99) mg/dL POC Glucose (mg/dL) (70-110) mg/dL Hemoglobin A1c (0.0-6.0) % Magnesium 1.5 L (1.6-2.3) mg/dL AST (14-36) U/L ALT (4-34) U/L Alkaline Phosphatase 139 H (38-126) U/L Troponin I 0.054 H* (0.000-0.034) ng/mL 10/01/22 10/01/22 10/01/22 Range/Units 13:34 14:42 14:56 APTT (22.0-30.0) sec Sodium (137-145) mmol/L Carbon Dioxide (22-30) mmol/L Creatinine (0.52-1.04) mg/dL Glucose (74-99) mg/dL POC Glucose (mg/dL) 308 H 345 H (70-110) mg/dL Hemoglobin A1c (0.0-6.0) % Magnesium (1.6-2.3) mg/dL AST (14-36) U/L ALT (4-34) U/L Alkaline Phosphatase (38-126) U/L Troponin I 2.720 H* (0.000-0.034) ng/mL 10/01/22 10/01/22 10/01/22 Range/Units 14:56 16:59 18:16 APTT (22.0-30.0) sec Sodium (137-145) mmol/L Carbon Dioxide (22-30) mmol/L Creatinine (0.52-1.04) mg/dL Glucose (74-99) mg/dL POC Glucose (mg/dL) 324 H (70-110) mg/dL Hemoglobin A1c 10.4 H (0.0-6.0) % Magnesium (1.6-2.3) mg/dL AST (14-36) U/L ALT (4-34) U/L Alkaline Phosphatase (38-126) U/L Troponin I 26.800 H* (0.000-0.034) ng/mL 10/01/22 10/02/22 10/02/22 Range/Units 20:19 03:44 06:16 APTT (22.0-30.0) sec Sodium 135 L (137-145) mmol/L Carbon Dioxide (22-30) mmol/L Creatinine (0.52-1.04) mg/dL Glucose 176 H (74-99) mg/dL POC Glucose (mg/dL) 267 H 187 H (70-110) mg/dL Hemoglobin A1c (0.0-6.0) % Magnesium (1.6-2.3) mg/dL AST 207 H (14-36) U/L ALT 35 H (4-34) U/L Alkaline Phosphatase (38-126) U/L Troponin I (0.000-0.034) ng/mL Thrombosis Risk Factor Assmnt - Choose All That Apply Any of the Below Risk Factors Present?: No Each Risk Factor Represents 2 Points: Age 61-74 years Thrombosis Risk Factor Assessment Total Risk Factor Score: 2 Thrombosis Risk Factor Assessment Level: Low Risk Assessment and Plan Time with Patient: Less than 30
[2022-10-02 16:29] LABS: Glucose,Whole Blood 190 mg/dL (70-110)
[2022-10-02 20:14] LABS: Glucose,Whole Blood 184 mg/dL (70-110)
[2022-10-02] MEDS: INSULIN DETEMIR (LEVEMIR) 100 UNIT/ML SYR SQ SCH (20:49)
[2022-10-02] MEDS: ATORVASTATIN 80 MG TAB PO SCH (20:50)
[2022-10-02] MEDS ORDERED: INSULIN DETEMIR (LEVEMIR) 100 UNIT/ML SYR SQ SCH (21:00)
[2022-10-03] MEDS: SODIUM CHLORIDE 0.9% 1,000 ML IV SCH (00:27)
[2022-10-03 06:15] LABS: Glucose,Whole Blood 174 mg/dL (70-110)
[2022-10-03] MEDS: INSULIN ASPART (NovoLOG) 100 UNIT/ML VIAL SQ SCH ×7 (06:20→20:19)
[2022-10-03 07:15] LABS: Mean Platelet Volume 7.3; Platelet Count 232 k/uL (150-450)
[2022-10-03 07:23] LABS: African American GFR (CKD) >90 (>60 ml/min/1.73 sqM); Anion Gap 9 mmol/L; Blood Urea Nitrogen 8 mg/dL (7-17); Calcium 8.4 mg/dL (8.4-10.2); Carbon Dioxide 27 mmol/L (22-30); Chloride 100 mmol/L (98-107); Glucose 167 mg/dL (74-99); Non-African American GFR(CKD) >90 (>60 ml/min/1.73 sqM); Potassium 3.8 mmol/L (3.5-5.1); Sodium 136 mmol/L (137-145)
[2022-10-03] MEDS: PRASUGREL 10 MG TAB PO SCH (09:44)
[2022-10-03] MEDS: ASPIRIN 81 MG PO SCH (09:44)
[2022-10-03] MEDS: METOPROLOL TARTRATE 25 MG TAB PO SCH ×2 (09:44→20:19)
[2022-10-03 11:42] LABS: Glucose,Whole Blood 265 mg/dL (70-110)
[2022-10-03] MEDS: SPIRONOLACTONE 25 MG TAB PO SCH (12:21)
[2022-10-03 16:26] LABS: Glucose,Whole Blood 188 mg/dL (70-110)
[2022-10-03] MEDS ORDERED: metFORMIN 500 MG TAB PO SCH (17:30)
--- NOTE | 2022-10-03 17:45 | P.PN ---
Subjective Progress Note Date: 10/03/22 PROGRESS NOTE The patient is a 62-year-old female with a history of diabetes, not followed by a physician who presented with an acute anterior wall myocardial infarction and underwent stenting of the LAD. She feels better today. She has no further anginal pain. Her breathing is stable. She continues to be in sinus mechanism and hemodynamically stable. She denies any dizziness or palpitations. Her EKG shows improvement in her ST segment elevation. October 03: The patient is feeling well today, she denies any chest discomfort, dizziness or palpitations. Her breathing is stable. She denies any nausea or vomiting. She continues to be in sinus mechanism. She is ambulating without difficulties. T he echocardiogram showed an ejection fraction of 35-40% with mild mitral regurgitation Medications: Aspirin, Lipitor 80 mg daily, Zestril 2.5 mg twice a day, metoprolol 25 mg twice a day, Aldactone 25 mg daily, Effient 10 mg daily in addition to insulin PHYSICAL EXAMINATION: Blood pressure 110/60 heart rate 95 LUNGS: Clear to auscultation HEART: Regular rate and rhythm, S1, S2. No S3. No systolic murmur ABDOMEN: Soft, nontender, no organomegaly EXTREMETIES: No edema, LAB: Potassium 3.8, BUN 8, creatinine 0.52. IMPRESSION: 1. Acute anterior wall myocardial infarction status post stenting of the LAD 2. Diabetes not treated prior to admission 3. Ischemic cardiomyopathy, post CT PLAN: 1. Increase lisinopril to 5 mg twice a day 2. Increase physical activity 3. If stable probable discharge home tomorrow Objective - Vital Signs Vital signs: Vital Signs Temp 98.4 F 10/03/22 16:15 Pulse 95 10/03/22 16:15 Resp 18 10/03/22 16:15 BP 110/67 10/03/22 16:15 Pulse Ox 97 10/03/22 16:15 FiO2 Intake & Output 10/02/22 10/03/22 10/03/22 18:59 06:59 18:59 Intake Total 2079 560 Output Total 0 Balance 2079 560 Weight 90 kg Intake: IV 0 20 0.9 0 Invasive Line 1 20 Intake, IV Titration 700 Amount Sodium Chloride 0.9% 1, 700 000 ml @ 100 mls/hr IV . Q10H [facility] Rx#:[id number] Oral 1380 540 Output: Urine 0 Other: Voiding Method Toilet Toilet # Voids 1 2 - Labs CBC & Chem 7: 10/03/22 06:54 10/03/22 06:54 Labs: Abnormal Lab Results - Last 24 Hours (Table) 10/02/22 10/03/22 10/03/22 Range/Units 20:13 06:13 06:54 Sodium 136 L (137-145) mmol/L Glucose 167 H (74-99) mg/dL POC Glucose (mg/dL) 184 H 174 H (70-110) mg/dL 10/03/22 10/03/22 Range/Units 11:40 16:25 Sodium (137-145) mmol/L Glucose (74-99) mg/dL POC Glucose (mg/dL) 265 H 188 H (70-110) mg/dL
[2022-10-03 20:03] LABS: Glucose,Whole Blood 205 mg/dL (70-110)
[2022-10-03] MEDS: ATORVASTATIN 80 MG TAB PO SCH (20:19)
[2022-10-03] MEDS: INSULIN DETEMIR (LEVEMIR) 100 UNIT/ML SYR SQ SCH (20:19)
[2022-10-03 21:55] VITALS: TEMP 97.2
--- NOTE | 2022-10-03 23:59 | P.PN ---
Subjective Progress Note Date: 10/03/22 This is a 62 year old female with medical history significant for diabetes mellitus, never smoker. Patient presents to the hospital with complaints of chest pain with sudden onset, chest pain is reported as heaviness with associated with nausea and diaphoresis. No prior history of congestive heart failure, heart attack or stroke. Patient reports the pain was so severe at home decided to come to the hospital for further evaluation. Initial work up on EKG shows sinus rhythm with heart rate of 79, there is ST elevation in multiple leads. Troponin elevation of 0.054, 2.70 and 26.8. Patient was hyponatremic with a sodium 132 on admission, blood glucoses 319 on admission. Hemoglobin A1c is 10.4. Magnesium 1.5. Patient has elevated liver enzymes. Patient is admitted for acute ST elevation [place] and taken to the cardiac research laboratory specialist, patient was given aspirin. Patient had a sub-totally occluded proximal and mid LAD with moderate disease in OM1 and mild disease in the RCA, patient underwent success ful stenting of LAD reduction of stenosis from 99-0%. Patient has been started on aspirin and Effient dual antiplatelet therapy for 1 year as well as aggressive risk factor modification. Patient is evaluated in the intensive care unit is being followed closely by cardiology. States she was recently hospitalized for a cyst on her buttock and was diagnosed with diabetes a few months ago during that hospital stay. She was discharged home on insulin and was unable to afford it as she is on a fixed income, has not been on any diabetic medications. Denies smoking, no alcohol. Currently chest pain free at the time of my assessment. 10/03/2022 Patient has been transferred out of the ICU currently on the stepdown unit. Continues to deny chest pain. Echocardiogram has been completed revealing an EF of 35-40% with mild MR. Remains on dual antiplatelet therapy with aspirin/effient. Triglyceride level of 172 and cholesterol of 201 patient has been started on high intensity statin. Additionally patient continues on metoprolol and lisinopril which has been increased to 5 mg BID by cardiology. Bl ood pressure is on the lower side and will require close monitoring. Blood glucose in the 200s. Patient would benefit from an SGLT2 and recommending starting patient on farxiga, although will require aguilar check on discharge as patient is on a fixed income and this is a barrier on discharge as patient will require medications to lower blood glucose in addition to cardiac medications. This is discussed with patient. Review of Systems Constitutional: Denied any fatigue denied any fever. Cardio vascular: denied any chest pain, palpitations Gastrointestinal: denied any nausea, vomiting, diarrhea Pulmonary: Denied any shortness of breath cough Neurologic denied any new focal deficits All inpatient medications were reviewed and appropriate changes in these medications as dictated in the interval history and assessment and plan. PHYSICAL EXAMINATION: GENERAL: The patient is alert and oriented x3, not in any acute distress. Well developed, well nourished. HEENT: Pupils are round and equally reacting to light. EOMI. No scleral icterus. No conjunctival pallor. Normocephalic, atraumatic. No pharyngeal erythema. No thyromegaly. CARDIOVASCULAR: S1 and S2 present. No murmurs, rubs, or gallops. PULMONARY: Chest is clear to auscultation, no wheezing or crackles. ABDOMEN: Soft, nontender, nondistended, normoactive bowel sounds. No palpable organomegaly. MUSCULOSKELETAL: No joint swelling or deformity. EXTREMITIES: No cyanosis, clubbing, or pedal edema. NEUROLOGICAL: Gross neurological examination did not reveal any focal deficits. SKIN: No rashes. Assessment Chest pain secondary to acute ST elevation [place] status post stenting of LAD Troponin elevation secondary to above Diabetes mellitus type 2 uncontrolled with hemoglobin A1c of 10.4, recently diagnosed Hyponatremia Hypomagnesemia Morbidy obesity with BMI of 35.1 Prophylaxis DVT prophylaxis Full Code Plan Patient is on dual antiplatelet therapy as well as Lipitor Patient was started on lisinopril 2.5 twice a day as well as metoprolol 25 twice a day. Continue cardiac monitoring, increase activity as tolerated monitor for chest pain. Cardiology following Continue Accu-Cheks before meals at bedtime and patient be started on oral diabetic medication with metformin on discharge and consider starting an SGLT2. Patient is on fixed income and will require aguilar checks on all new medications prior to discharge to confirm patient is able to afford them. The impression and plan of care has been dictated by Heather Jay Nurse Practitioner as directed. Dr. Rey MD I have performed a history and physical examination and medical decision making of this patient, discussed the same with the dictator, and agree with the dictators assessment and plan as written, documented as a scribe. Based on total visit time, I have performed more than 50% of this visit. Objective - Vital Signs Vital signs: Vital Signs Temp 98 F 10/02/22 20:00 Pulse 77 10/03/22 04:00 Resp 16 10/03/22 04:00 BP 105/66 10/03/22 04:00 Pulse Ox 96 10/03/22 04:00 FiO2 Intake & Output 10/02/22 10/03/22 10/03/22 18:59 06:59 18:59 Intake Total 0 Output Total 0 Balance 2079 Weight 90 kg Intake: IV 0 0.9 0 Intake, IV Titration 700 Amount Sodium Chloride 0.9% 1, 700 000 ml @ 100 mls/hr IV . Q10H [facility] Rx#:[id number] Oral 1380 Output: Urine 0 Other: Voiding Method Toilet # Voids 1 - Labs CBC & Chem 7: 10/03/22 06:54 10/03/22 06:54 Labs: Abnormal Lab Results - Last 24 Hours (Table) 10/02/22 10/02/22 10/02/22 Range/Units 04:20 12:48 16:27 Sodium (137-145) mmol/L Glucose (74-99) mg/dL POC Glucose (mg/dL) 262 H 190 H (70-110) mg/dL Triglycerides 172.00 H (0.00-149.00) mg/dL Cholesterol 201.00 H (0.00-200.00) mg/dL 10/02/22 10/03/22 10/03/22 Range/Units 20:13 06:13 06:54 Sodium 136 L (137-145) mmol/L Glucose 167 H (74-99) mg/dL POC Glucose (mg/dL) 184 H 174 H (70-110) mg/dL Triglycerides (0.00-149.00) mg/dL Cholesterol (0.00-200.00) mg/dL Assessment and Plan Time with Patient: Less than 30
[2022-10-04] MEDS: lisinopriL 5 MG TAB PO SCH ×2 (02:08→15:17)
[2022-10-04 06:08] LABS: Glucose,Whole Blood 164 mg/dL (70-110)
[2022-10-04] MEDS: INSULIN ASPART (NovoLOG) 100 UNIT/ML VIAL SQ SCH ×4 (06:24→12:32)
[2022-10-04 07:40] LABS: African American GFR (CKD) >90 (>60 ml/min/1.73 sqM); Anion Gap 9 mmol/L; Blood Urea Nitrogen 11 mg/dL (7-17); Calcium 8.5 mg/dL (8.4-10.2); Carbon Dioxide 27 mmol/L (22-30); Chloride 99 mmol/L (98-107); Glucose 151 mg/dL (74-99); Non-African American GFR(CKD) >90 (>60 ml/min/1.73 sqM); Potassium 3.8 mmol/L (3.5-5.1); Sodium 135 mmol/L (137-145)
[2022-10-04 07:42] LABS: Mean Platelet Volume 7.2; Platelet Count 214 k/uL (150-450)
[2022-10-04] MEDS ORDERED: DAPAGLIFLOZIN PROPANEDIOL 5 MG TABLET PO SCH (09:00)
[2022-10-04] MEDS: METOPROLOL TARTRATE 25 MG TAB PO SCH (09:30)
[2022-10-04] MEDS: SPIRONOLACTONE 25 MG TAB PO SCH (09:30)
[2022-10-04] MEDS: PRASUGREL 10 MG TAB PO SCH (09:30)
[2022-10-04] MEDS: ASPIRIN 81 MG PO SCH (09:30)
--- NOTE | 2022-10-04 11:03 | P.PN ---
Subjective Progress Note Date: 10/04/22 PROGRESS NOTE The patient is a 62-year-old female with a history of diabetes, not followed by a physician who presented with an acute anterior wall myocardial infarction and underwent stenting of the LAD. She feels better today. She has no further anginal pain. Her breathing is stable. She continues to be in sinus mechanism and hemodynamically stable. She denies any dizziness or palpitations. Her EKG shows improvement in her ST segment elevation. October 03: The patient is feeling well today, she denies any chest discomfort, dizziness or palpitations. Her breathing is stable. She denies any nausea or vomiting. She continues to be in sinus mechanism. She is ambulating without difficulties. T he echocardiogram showed an ejection fraction of 35-40% with mild mitral regurgitation October 04: The patient feels well today, she is ambulating without difficulties. She denies any chest discomfort, dizziness or palpitations. Hemodynamically she is stable. She continues to be in sinus mechanism. She denies any nausea or vomiting. Medications: Aspirin, Lipitor 80 mg daily, Zestril 5 mg twice a day, metoprolol 25 mg twice a day, Aldactone 25 mg daily, Effient 10 mg daily in addition to insulin PHYSICAL EXAMINATION: Blood pressure 91/60 heart rate 95 LUNGS: Clear to auscultation HEART: Regular rate and rhythm, S1, S2. No S3. No systolic murmur ABDOMEN: Soft, nontender, no organomegaly EXTREMETIES: No edema, LAB: Potassium 3.8, BUN 11, creatinine 0.52. IMPRESSION: 1. Acute anterior wall myocardial infarction status post stenting of the LAD 2. Diabetes not treated prior to admission 3. Ischemic cardiomyopathy, post ID PLAN: 1. Decrease BRENDA inhibitor 2. Increase physical activity 3. If stable discharged home today. 4. Follow-up in one week. Objective - Vital Signs Vital signs: Vital Signs Temp 97.2 F L 10/03/22 20:00 Pulse 80 10/04/22 09:29 Resp 16 10/04/22 09:29 BP 91/59 10/04/22 09:29 Pulse Ox 98 10/04/22 09:29 FiO2 Intake & Output 10/03/22 10/04/22 10/04/22 18:59 06:59 18:59 Intake Total 1160 540 360 Balance 1160 540 360 Intake: IV 20 Invasive Line 1 20 Oral 1140 540 360 Other: Voiding Method Toilet Toilet # Voids 2 1 - Labs CBC & Chem 7: 10/04/22 06:50 10/04/22 06:50 Labs: Abnormal Lab Results - Last 24 Hours (Table) 10/03/22 10/03/22 10/03/22 Range/Units 11:40 16:25 20:02 Sodium (137-145) mmol/L Glucose (74-99) mg/dL POC Glucose (mg/dL) 265 H 188 H 205 H (70-110) mg/dL 10/04/22 10/04/22 Range/Units 06:07 06:50 Sodium 135 L (137-145) mmol/L Glucose 151 H (74-99) mg/dL POC Glucose (mg/dL) 164 H (70-110) mg/dL
[2022-10-04 11:33] LABS: Glucose,Whole Blood 212 mg/dL (70-110)
[2022-10-04 12:34] VITALS: BP 100/70; PULSE 90; RESP 18
--- NOTE | 2022-10-05 22:09 | P.DS ---
Providers Date of admission: 10/01/22 13:37 Attending physician: Blaze Mejia Consults: 10/01/22 13:35 Consult Physician Urgent Consulting Provider: Josselyn Oates Consult Reason/Comments: stemi Do you want consulting provider notified?: Yes 10/01/22 14:34 Consult Physician Routine Consulting Provider: [facility] Consult Reason/Comments: Post Interventional Patient Do you want consulting provider notified?: Already Contacted Primary care physician: Stated None Hospital Course: Final Diagnosis Chest pain secondary to acute ST elevation IN status post stenting of LAD Troponin elevation secondary to above Diabetes mellitus type 2 uncontrolled with hemoglobin A1c of 10.4, recently diagnosed Hyponatremia Hypomagnesemia Morbidy obesity with BMI of 35.1 Full Code Discharge Disposition Patient is stable for discharge home has been cleared by cardiology. Patient has been discharged on high intensity statin, dual antiplatelet therapy with aspirin and effient. Patient to also continue on lisinopril 2.5 mg BID, metoprolol 25 mg BID. Patient was previously discharged on insulin and unable to afford due to have a fixed income. Patient is discharged on combination of farxiga and met formin and is given a glucometer on discharge. Patient is instructed to check blood sugar twice a day and keep log for follow up appointment. Patient educated on the GI side effects of metformin use. Recommending to repeat labs in 2 to 3 days. Patient to see cardiology outpatient in 1 week. Currently does not have a PCP recommended to f/u with Dr. Raf Corona however patient may choose a PCP. Wyatt was done prior to discharge and patient able to afford all new medications. Hospital Course This is a 62 year old female with medical history significant for diabetes mellitus, never smoker. Patient presents to the hospital with complaints of chest pain with sudden onset, chest pain is reported as heaviness with associated with nausea and diaphoresis. No prior history of congestive heart failure, heart attack or stroke. Patient reports the pain was so severe at home decided to come to the hospital for further evaluation. Initial work up on EKG shows sinus rhythm with heart rate of 79, there is ST elevation in multiple leads. Troponin elevation of 0.054, 2.70 and 26.8. Patient was hyponatremic with a sodium 132 on admission, blood glucoses 319 on admission. Hemoglobin A1c is 10.4. Magnesium 1.5. Patient has elevated liver enzymes. Patient is admitted for acute ST elevation [place] and taken to the cardiac labor delivery specialist, patient was given aspirin. Patient had a sub-totally occluded proximal and mid LAD with moderate disease in OM1 and mild disease in the RCA, patient underwent successful stenting of LAD reduction of stenosis from 99-0%. Patient has been started on aspirin and Effient dual antiplatelet therapy for 1 year as well as aggressive risk factor modification. Echocardiogram has been completed revealing an EF of 35-40% with mild MR. Remains on dual antiplatelet therapy with aspirin/effient. Triglyceride level of 172 and cholesterol of 201 patient has been started on high intensity statin States she was recently hospitalized for a cyst on her buttock and was diagnosed with diabetes a few months ago during that hospital stay. She was discharged home on insulin and was unable to afford it as she is on a fixed income, has not been on any diabetic medications. Denies smoking, no alcohol. Currently chest pain free at the time of my assessment. Patient will benefit form an SGLT2 and will recommending initiating farxiga in addition to metformin and blood glucose monitoring. Patient was monitored on the intensive care unit and downgraded to the stepdown unit for continued monitoring on telemetry. Has denied shortness of breath, denies chest pain, denies d izziness or lightheadedness. Patients lungs are clear, S1 S2 auscultated, abdomen is soft and nontender. Focal neurological exam is negative, patient is alert x 3. Discharged home with the above mentioned recommendations. Please see medication reconciliation for a list of current medication. Thank you for allowing us to participate in the care of this patient. The impression and plan of care has been dictated by Heather Jay, Nurse Practitioner as directed. Dr. Rey MD I have performed a history and physical examination and medical decision making of this patient, discussed the same with the dictator, and agree with the dictators assessment and plan as written, documented as a scribe. Based on total visit time, I have performed more than 50% of this visit. Patient Condition at Discharge: Stable Plan - Discharge Summary Discharge Rx Participant: No New Discharge Prescriptions: New Aspirin 81 mg PO DAILY #30 tab Prasugrel [Effient] 10 mg PO DAILY #30 tab Dapagliflozin Propanediol [Farxiga] 5 mg PO DAILY #30 tab Nitroglycerin Sl Tabs [Nitrostat] 0.4 mg SUBLINGUAL Q5M PRN #20 tab PRN Reason: Chest Pain Acetaminophen Tab [Tylenol] 650 mg PO Q6HR PRN tab PRN Reason: Fever And/ Or Pain Spironolactone [Aldactone] 25 mg PO DAILY #30 tab metFORMIN HCL [Glucophage] 500 mg PO BID #60 tab Atorvastatin [Lipitor] 80 mg PO HS #30 tab Metoprolol Tartrate [Lopressor] 25 mg PO BID #60 tab Blood Sugar Diagnostic [Glucose Test Strip] 1 each MC BID #60 strip lisinopriL [Zestril] 2.5 mg PO BID #60 tab Discharge Medication List Acetaminophen Tab [Tylenol] 650 mg PO Q6HR PRN tab 10/04/22 [Rx] Aspirin 81 mg PO DAILY #30 tab 10/04/22 [Rx] Atorvastatin [Lipitor] 80 mg PO HS #30 tab 10/04/22 [Rx] Blood Sugar Diagnostic [Glucose Test Strip] 1 each MC BID #60 strip 10/04/22 [Rx] Dapagliflozin Propanediol [Farxiga] 5 mg PO DAILY #30 tab 10/04/22 [Rx] Metoprolol Tartrate [Lopressor] 25 mg PO BID #60 tab 10/04/22 [Rx] Nitroglycerin Sl Tabs [Nitrostat] 0.4 mg SUBLINGUAL Q5M PRN #20 tab 10/04/22 [Rx] Prasugrel [Effient] 10 mg PO DAILY #30 tab 10/04/22 [Rx] Spironolactone [Aldactone] 25 mg PO DAILY #30 tab 10/04/22 [Rx] lisinopriL [Zestril] 2.5 mg PO BID #60 tab 10/04/22 [Rx] metFORMIN HCL [Glucophage] 500 mg PO BID #60 tab 10/04/22 [Rx] Follow up Appointment(s)/Referral(s): Josselyn Oates MD [STAFF PHYSICIAN] - 1 Week Raf Corona MD [REFERRING] - 1-2 Days Ambulatory/Diagnostic Orders: Basic Metabolic Panel [LAB.AMB] Time Frame: 3 Days, Location: None Selected Magnesium [LAB.AMB] Time Frame: 3 Days, Location: None Selected Patient Instructions/Handouts: *Surgery [facility] - After Heart Catheterization - Tape Recorder Mechanic Instructions Activity/Diet/Wound Care/Special Instructions: Take one SL tablet under the tongue every 5 minutes at onset of acute chest pain, call 911 or come to the ER For evalaution if this occurs. Monitor blood glucose at home twice a day and keep log for f/u appointment with PCP Follow up with a primary provider need to establish care, recommend Dr Shreyas Corona Follow up with cardiology in 1 week on DC Repeat labs in 2 to 3 days Discharge Disposition: HOME SELF-CARE
--- NOTE | 2022-10-21 06:41 | CDI ---
Documentation Clarification Form Date: 10/21/2022 06:32:46 AM From: Maira Caballero Admit Date: 10/01/2022 01:37:00 PM Patient Name: Lorenza Cartagena Visit Number: [id number] Discharge Date: 10/04/2022 03:24:00 PM ATTENTION: The Clinical Documentation Specialists (CDI) and [facility] Coding Staff appreciate your assistance in clarifying documentation. Please respond to the clarification below the line at the bottom and electronically sign. The CDI & [facility] Coding staff will review the response and follow-up if needed. Please note: Queries are made part of the Legal Health Record. If you have any questions, please contact the author of this message via ITS. Dr. Rupert Le Diabetes Type II uncontrolled is documented in H and P, DCS and throughout chart. Please clarify if uncontrolled is due to hyperglycemia or hypoglycemia. Additional specificity regarding the diabetes diagnosis is requested. History/Risk Factors: New onset Diabetes Clinical Indicators: Hemoglobin A1C is 10.4 Glucose 319 on admit Treatment: Insulin. Previously discharge home on Insulin and unable to afford due to fixed income. Please clarify the type of diabetes, if known: [ x ] Diabetes Type 2 with hyperglycemia [ ] Diabetes Type 2 with hypoglycemia [ ] Other, please specify [ ] Unable to Determine MTDD
== END 2022-10-04 15:24 | disposition home or self-care (01) | DRG 247 ==
LOC: CATHCVL 13:23 → 2SICU 13:37 → 3SCARD 10-02 15:49
PROVIDERS: ADMIT Hospitalist; ATTEND Hospitalist
PROC: 027034Z Dilation of Coronary Artery, One Artery with Drug-eluting Intraluminal Device, Percutaneous Approach (ICD-10-PCS; principal; 2022-10-01 14:30)
PROC: 4A023N7 Measurement of Cardiac Sampling and Pressure, Left Heart, Percutaneous Approach (ICD-10-PCS; principal; 2022-10-01 14:30)
PROC: B240ZZ3 Ultrasonography of Single Coronary Artery, Intravascular (ICD-10-PCS; principal; 2022-10-01 14:30)
PROC: B2111ZZ Fluoroscopy of Multiple Coronary Arteries using Low Osmolar Contrast (ICD-10-PCS; principal; 2022-10-01 14:30)
DX: I21.09 ST elevation (STEMI) myocardial infarction involving other coronary artery of anterior wall (principal); E87.1 Hypo-osmolality and hyponatremia; I25.10 Atherosclerotic heart disease of native coronary artery without angina pectoris; I34.0 Nonrheumatic mitral (valve) insufficiency; I25.5 Ischemic cardiomyopathy; E83.42 Hypomagnesemia; E66.01 Morbid (severe) obesity due to excess calories; Z68.35 Body mass index [BMI] 35.0-35.9, adult; E11.65 Type 2 diabetes mellitus with hyperglycemia; Z82.49 Family history of ischemic heart disease and other diseases of the circulatory system; Z28.310 Unvaccinated for COVID-19; Z71.3 Dietary counseling and surveillance; T38.3X6A Underdosing of insulin and oral hypoglycemic [antidiabetic] drugs, initial encounter; Z91.120 Patient's intentional underdosing of medication regimen due to financial hardship; I25.84 Coronary atherosclerosis due to calcified coronary lesion
CPT/HCPCS: 71045; 80048; 80053; 82465; 83036; 83690; 83718; 83735; 83880; 84478; 84484; 85025; 85049; 85610; 85730; 92978; 93306; 93458; 94760; 96374; 96375; 99291

== ENCOUNTER → 2022-10-12 | Outpatient (CLI) | payer BC, OTHER ==
[2022-10-12 22:39] LABS: BUN/Creat Ratio 17.25 Ratio (12.00-20.00); Blood Urea Nitrogen 13.8 mg/dL (9.0-27.0); Calcium 10.2 mg/dL (8.7-10.3); Carbon Dioxide 23.6 mmol/L (21.6-31.8); Chloride 101 mmol/L (96-109); Glucose 153 mg/dL (70-110); Magnesium 1.9 mg/dL (1.5-2.4); Potassium 5.2 mmol/L (3.5-5.5); Sodium 138 mmol/L (135-145)
== END | disposition home or self-care (01) ==
LOC: LABWHC1 12:43
PROVIDERS: ATTEND Nurse Practitioner Family
DX: I21.3 ST elevation (STEMI) myocardial infarction of unspecified site (principal); E83.42 Hypomagnesemia
CPT/HCPCS: 36415; 80048; 83735

== ENCOUNTER → 2022-11-27 | Outpatient (CLI) | payer BC, OTHER ==
[2022-11-28 02:16] LABS: ALT 22 U/L (8-44); AST 22 U/L (13-35); Albumin 4.3 d/dL (3.8-4.9); Albumin/Globulin Ratio 1.43 Ratio (1.60-3.17); Alkaline Phosphatase 113 U/L (41-126); BUN/Creat Ratio 22.86 Ratio (12.00-20.00); Calcium 9.5 mg/dL (8.7-10.3); Carbon Dioxide 22.8 mmol/L (21.6-31.8); Chloride 98 mmol/L (96-109); Chol/HDL Ratio 4.34 Ratio; Glucose 248 mg/dL (70-110); LDL Cholesterol,Calculated 132.4 mg/dL (0.0-131.0); Potassium 4.8 mmol/L (3.5-5.5); Sodium 133 mmol/L (135-145); Total Bilirubin 0.8 mg/dL (0.3-1.2); Total Protein 7.3 d/dL (6.2-8.2)
== END | disposition home or self-care (01) ==
LOC: LABWHC1 13:40
PROVIDERS: ATTEND Internal Medicine Interventional Cardiology
DX: E78.2 Mixed hyperlipidemia (principal)
CPT/HCPCS: 36415; 80053; 80061

== ENCOUNTER 2023-10-23 08:45 | Observation (INO) | payer BC, OTHER ==
--- NOTE | 2023-10-23 09:11 | ED ---
General Adult HPI - General Chief complaint: Dizziness Stated complaint: Chest pain,Dizziness,Nausea Time Seen by Provider: 10/23/23 08:49 Source: patient, EMS, RN notes reviewed Mode of arrival: EMS Limitations: no limitations - History of Present Illness Initial comments: 63-year-old female presents emergency department via EMS chief complaint of chest pain, nausea, dizziness. Patient states she awoke with the symptoms. She states that she has some centralized chest pain. Patient states she did have [facility] 1 year ago with stent placement of her LAD. Patient states that she has room spinning dizziness, associated nausea vomiting from this. She was given Zofran, fentanyl with no relief of symptoms at this time. She does complain of mild right ear pain denies any abdominal pain no focal weakness denies any paresthesias. - Related Data Previous Rx's Medication Instructions Recorded Acetaminophen Tab [Tylenol] 650 mg PO Q6HR PRN tab 10/04/22 Aspirin 81 mg PO DAILY #30 tab 10/04/22 Atorvastatin [Lipitor] 80 mg PO HS #30 tab 10/04/22 Blood Sugar Diagnostic [Glucose 1 each MC BID #60 strip 10/04/22 Test Strip] Dapagliflozin Propanediol [Farxiga] 5 mg PO DAILY #30 tab 10/04/22 Metoprolol Tartrate [Lopressor] 25 mg PO BID #60 tab 10/04/22 Nitroglycerin Sl Tabs [Nitrostat] 0.4 mg SUBLINGUAL Q5M PRN #20 tab 10/04/22 Prasugrel [Effient] 10 mg PO DAILY #30 tab 10/04/22 Spironolactone [Aldactone] 25 mg PO DAILY #30 tab 10/04/22 lisinopriL [Zestril] 2.5 mg PO BID #60 tab 10/04/22 metFORMIN HCL [Glucophage] 500 mg PO BID #60 tab 10/04/22 Allergies Allergy/AdvReac Type Severity Reaction Status Date / Time Sulfa (Sulfonamide AdvReac Rash/Hives Verified 10/23/23 09:30 Antibiotics) Review of Systems ROS Statement: Those systems with pertinent positive or pertinent negative responses have been documented in the HPI. ROS Other: All systems not noted in ROS Statement are negative. Past Medical History Past Medical History: Diabetes Mellitus Additional Past Medical History / Comment(s): RECENT INPT FOR COLITIS AND INFLUENZA 04/17/14. NEW DX DIABETES History of Any Multi-Drug Resistant Organisms: None Reported Past Surgical History: Section, Cholecystectomy, Orthopedic Surgery, Tubal Ligation Additional Past Surgical History / Comment(s): LT KNEE SURGERY Past Anesthesia/Blood Transfusion Reactions: No Reported Reaction Past Psychological History: No Psychological Hx Reported Smoking Status: Former smoker Past Alcohol Use History: Occasional Past Drug Use History: None Reported - Past Family History Mother Family Medical History: Congestive Heart Failure (CHF) General Exam Limitations: no limitations General appearance: alert, in no apparent distress Head exam: Present: atraumatic, normocephalic, normal inspection Eye exam: Present: normal appearance, PERRL, EOMI. Absent: scleral icterus, conjunctival injection, periorbital swelling ENT exam: Present: normal exam, normal oropharynx, mucous membranes moist Neck exam: Present: normal inspection, full ROM. Absent: tenderness, meningismus, lymphadenopathy Respiratory exam: Present: normal lung sounds bilaterally. Absent: respiratory distress, wheezes, rales, rhonchi, stridor Cardiovascular Exam: Present: regular rate, normal rhythm, normal heart sounds. Absent: systolic murmur, diastolic murmur, rubs, gallop, clicks Neurological exam: Present: alert, oriented X3, CN II-XII intact, reflexes normal. Absent: motor sensory deficit Skin exam: Present: warm, dry, intact, normal color. Absent: rash Course Vital Signs 10/23/23 10/23/23 08:47 11:15 Temperature 97.8 F 98.1 F Pulse Rate 65 76 Respiratory 18 18 Rate Blood Pressure 139/70 128/68 O2 Sat by Pulse 99 97 Oximetry EKG Findings - EKG Comments: EKG Findings:: EKG performed at 8: 58 sinus bradycardia rate of 56 [place] 164 QRS 81 QT/QTc 422/414 noted inverted T waves V1 through V3 - EKG Results: EKG: interpreted by ERMD Medical Decision Making - Medical Decision Making Was pt. sent in by a medical professional or institution (, PA, BUSINESS CENTER REPRESENTATIVE, urgent care, hospital, or penitentiary...) When possible be specific @ -No Did you speak to anyone other than the patient for history (EMS, parent, family, police, friend...)? What history was obtained from this source @ -No Did you review nursing and triage notes (agree or disagree)? Why? @ -I reviewed and agree with nursing and triage notes Were old charts reviewed (outside hosp., previous admission, EMS record, old EKG, old radiological studies, urgent care reports/EKG's, penitentiary records)? Report findings @ -Reviewed cardiac cath from 2022, reviewed prior CBC, and EKG Differential Diagnosis (chest pain, altered mental status, abdominal pain women, abdominal pain men, vaginal bleeding, weakness, fever, dyspnea, syncope, headache, dizziness, GI bleed, back pain, seizure, CVA, palpatations, mental health, musculoskeletal)? @ -Differential Dizziness: Benign paroxysmal positional Vertigo, Menieres disease, otitis media, acoustic neuroma, vertebrobasilar insufficiency, cerebellar stroke, encephalitis, hypovolemic, arrhythmia, coronary artery syndrome, anemia, this is not meant to be an all-inclusive list EKG interpreted by me (3pts min.). @ -As above X-rays interpreted by me (1pt min.). @ -Chest x-ray shows no acute cardiopulmonary process CT interpreted by me (1pt min.). @ -CT brain shows no acute intracranial hemorrhage, mass effect or acute malady U/S interpreted by me (1pt. min.). @ -None done What testing was considered but not performed or refused? (CT, X-rays, U/S, labs)? Why? @ -None What meds were considered but not given or refused? Why? @ -None Did you discuss the management of the patient with other professionals (moises jimenez i.e. , PA, BUSINESS CENTER REPRESENTATIVE, lab, RT, psych nurse, social service technician, record tester, teacher, loan officer assistant, manager rn case)? Give summary @ -Dr. Anderson for admission for chest pain rule out, persistent dizziness Was smoking cessation discussed for >3mins.? @ -No Was critical care preformed (if so, how long)? @ -No Were there social determinants of health that impacted care today? How? (Homelessness, low income, unemployed, alcoholism, drug addiction, transportation, low edu. Level, literacy, decrease access to med. care, [facility], rehab)? @ -No Was there de-escalation of care discussed even if they declined (Discuss DNR or withdrawal of care, Hospice)? DNR status @ -No What co-morbidities impacted this encounter? (DM, HTN, Smoking, COPD, CAD, Cancer, CVA, ARF, Chemo, Hep., AIDS, mental health diagnosis, sleep apnea, morbid obesity)? @ -None Was patient admitted / discharged? Hospital course, mention meds given and route, prescriptions, significant lab abnormalities, going to OR and other pertinent info. @ -Admitted patient has significant cardiac history initial troponin is negative. Patient continues to have dizziness without acute findings on CT laboratory studies patient was hydrated, given antiemetics, Ativan, Antivert, scopolamine patch was placed. She does not have any focal weakness. Undiagnosed new problem with uncertain prognosis? @ -No Drug Therapy requiring intensive monitoring for toxicity (Heparin, Nitro, Insulin, Cardizem)? @ -No Were any procedures done? @ -No Diagnosis/symptom? @ -Intractable dizziness, chest pain Acute, or Chronic, or Acute on Chronic? @ -Acute Uncomplicated (without systemic symptoms) or Complicated (systemic symptoms)? @Complicated Side effects of treatment? @ -No Exacerbation, Progression, or Severe Exacerbation? @ -No Poses a threat to life or bodily function? How? (Chest pain, [place], [facility], pneumonia, PE, COPD, DKA, ARF, appy, cholecystitis, CVA, Diverticulitis, Homicidal, Suicidal, threat to staff... and all critical care pts) @ -Yes possible ACS, may lead to cardiac arrest - Lab Data Result diagrams: 10/23/23 09:11 10/23/23 09:11 Lab Results 10/23/23 10/23/23 10/23/23 Range/Units 09:10 09:11 09:11 WBC 9.1 (3.8-10.6) k/uL RBC 4.99 (3.80-5.40) m/uL Hgb 15.3 (11.4-16.0) gm/dL Hct 46.0 (34.0-46.0) % MCV 92.3 (80.0-100.0) fL MCH 30.6 (25.0-35.0) pg MCHC 33.2 (31.0-37.0) g/dL RDW 13.2 (11.5-15.5) % Plt Count 301 (150-450) k/uL MPV 8.1 Neutrophils % 53 % Lymphocytes % 35 % Monocytes % 4 % Eosinophils % 5 % Basophils % 1 % Neutrophils # 4.8 (1.3-7.7) k/uL Lymphocytes # 3.2 (1.0-4.8) k/uL Monocytes # 0.4 (0-1.0) k/uL Eosinophils # 0.4 (0-0.7) k/uL Basophils # 0.1 (0-0.2) k/uL PT (10.0-12.5) sec INR (<1.2) APTT (22.0-30.0) sec Sodium 137 (137-145) mmol/L Potassium 4.5 (3.5-5.1) mmol/L Chloride 111 H (98-107) mmol/L Carbon Dioxide 17 L (22-30) mmol/L Anion Gap 9 mmol/L BUN 13 (7-17) mg/dL Creatinine 0.53 (0.52-1.04) mg/dL Est GFR (CKD-EPI)AfAm >90 (>60 ml/min/1.73 sqM) Est GFR (CKD-EPI)NonAf >90 (>60 ml/min/1.73 sqM) Glucose 187 H (74-99) mg/dL POC Glucose (mg/dL) 210 H (70-110) mg/dL POC Glu Ore Buyer ID Cody Lin Calcium 8.7 (8.4-10.2) mg/dL Magnesium 1.5 L (1.6-2.3) mg/dL Total Bilirubin 1.1 (0.2-1.3) mg/dL AST 34 (14-36) U/L ALT 22 (4-34) U/L Alkaline Phosphatase 98 (38-126) U/L Troponin I (0.000-0.034) ng/mL Total Protein 6.6 (6.3-8.2) g/dL Albumin 3.7 (3.5-5.0) g/dL 10/23/23 10/23/23 Range/Units 09:11 09:11 WBC (3.8-10.6) k/uL RBC (3.80-5.40) m/uL Hgb (11.4-16.0) gm/dL Hct (34.0-46.0) % MCV (80.0-100.0) fL MCH (25.0-35.0) pg MCHC (31.0-37.0) g/dL RDW (11.5-15.5) % Plt Count (150-450) k/uL MPV Neutrophils % % Lymphocytes % % Monocytes % % Eosinophils % % Basophils % % Neutrophils # (1.3-7.7) k/uL Lymphocytes # (1.0-4.8) k/uL Monocytes # (0-1.0) k/uL Eosinophils # (0-0.7) k/uL Basophils # (0-0.2) k/uL PT 10.9 (10.0-12.5) sec INR 1.0 (<1.2) APTT 22.0 (22.0-30.0) sec Sodium (137-145) mmol/L Potassium (3.5-5.1) mmol/L Chloride (98-107) mmol/L Carbon Dioxide (22-30) mmol/L Anion Gap mmol/L BUN (7-17) mg/dL Creatinine (0.52-1.04) mg/dL Est GFR (CKD-EPI)AfAm (>60 ml/min/1.73 sqM) Est GFR (CKD-EPI)NonAf (>60 ml/min/1.73 sqM) Glucose (74-99) mg/dL POC Glucose (mg/dL) (70-110) mg/dL POC Glu Ore Buyer ID Calcium (8.4-10.2) mg/dL Magnesium (1.6-2.3) mg/dL Total Bilirubin (0.2-1.3) mg/dL AST (14-36) U/L ALT (4-34) U/L Alkaline Phosphatase (38-126) U/L Troponin I <0.012 (0.000-0.034) ng/mL Total Protein (6.3-8.2) g/dL Albumin (3.5-5.0) g/dL Disposition Clinical Impression: Chest pain, Metabolic acidosis, Dizziness Disposition: ADMITTED IP TO THIS [facility] Condition: Fair Time of Disposition: 13:12
[2023-10-23 09:12] LABS: Glucose,Whole Blood 210 mg/dL (70-110)
[2023-10-23] MEDS: MECLIZINE 12.5 MG TAB PO STA (09:21)
[2023-10-23] MEDS: METOCLOPRAMIDE 5 MG/ML 2 ML VIAL IVP STA (09:24)
[2023-10-23] MEDS: SODIUM CHLORIDE 0.9% 1,000 ML IV STA (09:26)
[2023-10-23 09:32] LABS: Basophils # (A) 0.1 k/uL (0-0.2); Basophils % (A) 1 %; Eosinophils # (A) 0.4 k/uL (0-0.7); Eosinophils % (A) 5 %; HGB 15.3 gm/dL (11.4-16.0); Lymphocytes # (A) 3.2 k/uL (1.0-4.8); Lymphocytes % (A) 35 %; MCH 30.6 pg (25.0-35.0); MCHC 33.2 g/dL (31.0-37.0); MCV 92.3 fL (80.0-100.0); Mean Platelet Volume 8.1; Monocytes # (A) 0.4 k/uL (0-1.0); Monocytes % (A) 4 %; Neutrophils # (A) 4.8 k/uL (1.3-7.7); Neutrophils % (A) 53 %; Platelet Count 301 k/uL (150-450); RBC 4.99 m/uL (3.80-5.40); RDW 13.2 % (11.5-15.5); WBC 9.1 k/uL (3.8-10.6)
--- NOTE | 2023-10-23 09:38 | XR ---
EXAMINATION TYPE: XR chest 2V DATE OF EXAM: 10/23/2023 COMPARISON: 10/01/2022 INDICATION: Pain TECHNIQUE: Frontal and lateral views of the chest are obtained. FINDINGS: The heart size is normal. The pulmonary vasculature is normal. The lungs are clear. IMPRESSION: 1. No acute pulmonary process.
[2023-10-23 10:12] LABS: ALT 22 U/L (4-34); African American GFR (CKD) >90 (>60 ml/min/1.73 sqM); Anion Gap 9 mmol/L; Blood Urea Nitrogen 13 mg/dL (7-17); Calcium 8.7 mg/dL (8.4-10.2); Carbon Dioxide 17 mmol/L (22-30); Chloride 111 mmol/L (98-107); Glucose 187 mg/dL (74-99); Non-African American GFR(CKD) >90 (>60 ml/min/1.73 sqM); Sodium 137 mmol/L (137-145); Total Bilirubin 1.1 mg/dL (0.2-1.3)
[2023-10-23 10:16] LABS: Prothrombin Time 10.9 sec (10.0-12.5)
[2023-10-23 10:27] LABS: AST 34 U/L (14-36); Albumin 3.7 g/dL (3.5-5.0); Alkaline Phosphatase 98 U/L (38-126); Magnesium 1.5 mg/dL (1.6-2.3); Potassium 4.5 mmol/L (3.5-5.1); Total Protein 6.6 g/dL (6.3-8.2)
[2023-10-23] MEDS: ONDANSETRON 4 MG/2 ML VIAL IVP STA (11:12)
[2023-10-23] MEDS: LORazepam 2 MG/ML INJ IV STA ×2 (11:13→12:12)
[2023-10-23] MEDS: SODIUM CHLORIDE 0.9% 500 ML 500 ML IV ONE (11:28)
--- NOTE | 2023-10-23 12:36 | CT ---
EXAMINATION TYPE: CT brain wo con DATE OF EXAM: 10/23/2023 COMPARISON: None INDICATION: Dizziness and nausea DLP: 1215.4 mGycm, Automated exposure control for dose reduction was used. CONTRAST: None CT of the brain is performed utilizing 3 mm thick sections through the posterior fossa and 3 mm thick sections through the remaining calvarium. Study is performed within 24 hours of arrival to the hosp ital. No abnormal hyperdensity is present to suggest an acute intracranial hemorrhage. No mass lesion is evident. No acute infarcts are evident. Ventricles and sulci are appropriate for the patient age. Paranasal sinuses and mastoid air cells within the [id number] are clear. IMPRESSION: 1. No acute intracranial process. Follow-up MRI can be performed as clinically indicated
[2023-10-23] MEDS: MAGNESIUM OXIDE 400 MG TAB PO STA (13:08)
[2023-10-23] MEDS: SODIUM CHLORIDE 0.9% 1,000 ML IV SCH (13:09)
[2023-10-23] MEDS ORDERED: NALOXONE 0.4 MG/ML 1 ML VIAL IV PRN (13:12)
[2023-10-23] MEDS ORDERED: ACETAMINOPHEN TAB 325 MG TAB PO PRN (13:12)
[2023-10-23] MEDS: MAGNESIUM SULFATE-D5W PMX 1 GM in DEXTROSE/WATER 1 100ML.BAG IVPB SCH (13:57)
[2023-10-23] MEDS ORDERED: NITROGLYCERIN SL TABS 0.4 MG TAB SUBLINGUAL PRN (15:10)
[2023-10-23] MEDS ORDERED: PROCHLORPERAZINE INJ 10 MG/2 ML VIAL IVP PRN (15:33)
[2023-10-23] MEDS ORDERED: DEXTROSE 50% SYRINGE 50 ML IVP PRN ×2 (15:43)
--- NOTE | 2023-10-23 15:57 | P.HPIM ---
History of Present Illness H&P Date: 10/23/23 History of Presenting Illness: Patient is a very pleasant 63-year-old female with a past medical history of CAD status post STEMI and stenting of LAD 10/01/2022, hypertension, hyperlipidemia, and [id number] diabetes mellitus. She presented to the emergency department with a chief complaint of intractable dizziness. Patient reports awakening this morning with significant dizziness/lightheadedness shortly followed by feeling of panic almost like a panic attack with chest pain, nausea, and intractable vomiting. She reports that she has a history of vertigo but has never experienced symptoms like this before. Patient reports feeling as though the room and everything around her is constantly spinning and that symptoms worsen with movement but do not improve at rest or with closing her eyes. She denies any recent medication changes, falls or injuries, headache, neck pain, back pain, fevers, chills, acute changes in vision or hearing, difficulties with or changes in speech, dysphagia, palpitations, shortness of breath, cough or congestion, or experiencing any focal numbness/tingling/weakness/swelling in her extremities. Patient reports her symptoms became so severe she vomited down her entire hallway and had to call EMS to bring her to the hospital. Upon arrival to our facility patient underwent evaluation in the emergency department. Vital signs upon arrival show blood pressure 139/70, heart rate 65, respiratory rate 18, temp 97.8 F, and SpO2 of 99% on room air. He was completed showing sinus bradycardia with T wave inversion in inferior lead III and anteroseptal leads V2 , V3, and V4 with no ST abnormalities noted upon personal review and interpretation. Chest x-ray was negative for acute cardiopulmonary process. CT brain negative for acute intracranial process. Labs were completed and reviewed. CBC was unremarkable. Coagulation profile normal findings. BMP revealing non-anion gap metabolic acidosis with chloride of 111, bicarb 17, and anion gap of 9 and mild hyperglycemia with blood glucose of 187. Magnesium was normal findings at 1.5. Liver profile unremarkable. Troponin was negative at less than 0.012. Patient was given 1.5 L bolus of IV fluids, Ativan, meclizine, scopolamine, Reglan, and Zofran and continues to have persistent intractable dizziness with nausea. She reports resolution of chest pain and states it has been approximately 2 hours since she last vomited. Patient admitted under our services with consultation to neurology and cardiology for evaluation. Review of systems: Pertinent positives and negatives as discussed in HPI, a complete review of systems was performed and all other systems are negative. Physical exam: Vital signs reviewed and stable. General: Nontoxic and appears stated age. Patient appears to be in mild distress, lying on her right side with eyes closed and appears to be uncomfortable secondary to reports of dizziness. Derm: Skin warm and dry, normal coloration for ethnicity. Head: Atraumatic, normocephalic and symmetric. Eyes: EOMs intact, no lid lag, and anicteric sclera Mouth: no lip lesions, mucus membranes moist Cardiovascular: regular rate and rhythm with normal S1S2, no murmur, positive posterior tibial pulses bilaterally, and cap refill < 2 seconds. Lungs: Respirations even, regular, and unlabored on room air. Lungs CTA bilaterally, no rhonchi, no rales, no wheezing, and no accessory muscle usage. Abdominal: soft, nontender to palpation, no guarding, no appreciable organomegaly Ext: ROM intact. No gross muscle atrophy, no edema, no contractures Neuro: Speech clear, face symmetrical and CN II-XII grossly intact with no noted focal neuro deficits Psych: Alert and oriented to person, place, time, and situation. Appropriate and pleasant affect. Assessment and Plan of Care: Acute persistant and intractable dizziness Intractable Nausea, secondary to above Chest pain with EKG changes, rule out acute coronary event Non-anion gap metabolic acidosis Diabetes mellitus with hyperglycemia History of CAD with stenting to LAD Hypertension Hyperlipidemia -Cardiology consulted for reports of chest pain and EKG changes, appreciate recommendations. -Neurology consulted for persistent intractable dizziness despite treatment -Patient placed on continuous telemetry monitoring -Trend troponins -Neurochecks every 4 hours and fall precautions in place. -Will obtain a D-dimer -Order placed for Valium 5 mg IVP x 1 dose, scheduled meclizine 25 mg 4 times d aily, and PRN Compazine 10 mg IVP every 6 hours as needed for nausea or vomiting. -Patient to be given aspirin 324 mg p.o. x 1 dose and to continue daily medication regimen with aspirin 81 mg daily, Plavix 75 mg daily, atorvastatin 80 mg nightly, Farxiga 10 mg daily, lisinopril 10 mg twice daily, and metoprolol 50 mg twice daily. -Continue with gentle IV fluid hydration with 0.9% normal saline at 75 cc/h. -Patient started on glycemic protocol with NovoLog sliding scale for management of diabetes with hyperglycemia. Data and imaging reviewed: As stated above in HPI The patient is admitted with an anticipated greater than 2 midnight stay for evaluation of acute persistent and intractable CODE STATUS: Full code DVT prophylaxis: Lovenox Anticipated discharge date: Pending clinical course Anticipated discharge place: Home Patient was seen independently by Nurse Practitioner. This document was prepared using [employer] dictation software. Please allow for errors in aircraft engine specialist while rare they do occur. Cody Jaramillo NP rendered care for this patient independently, reviewed the findings and plan as documented in the note above. I did not physically speak with or examine the patient on this date. Past Medical History Past Medical History: Diabetes Mellitus Additional Past Medical History / Comment(s): RECENT INPT FOR COLITIS AND INFLUENZA 04/17/14. NEW DX DIABETES History of Any Multi-Drug Resistant Organisms: None Reported Past Surgical History: Section, Cholecystectomy, Orthopedic Surgery, Tubal Ligation Additional Past Surgical History / Comment(s): LT KNEE SURGERY Past Anesthesia/Blood Transfusion Reactions: No Reported Reaction Past Psychological History: No Psychological Hx Reported Smoking Status: Former smoker Past Alcohol Use History: Occasional Past Drug Use History: None Reported - Past Family History Mother Family Medical History: Congestive Heart Failure (CHF) Medications and Allergies Home Medications Medication Instructions Recorded Confirmed Type Nitroglycerin Sl Tabs [Nitrostat] 0.4 mg SUBLINGUAL Q5M PRN #20 tab 10/04/22 10/23/23 Rx Atorvastatin [Lipitor] 80 mg PO DAILY 10/23/23 10/23/23 History Clopidogrel [Plavix] 75 mg PO DAILY 10/23/23 10/23/23 History Dapagliflozin Propanediol [Farxiga] 10 mg PO DAILY 10/23/23 10/23/23 History Metoprolol Tartrate [Lopressor] 50 mg PO BID-W/MEALS 10/23/23 10/23/23 History lisinopriL [Zestril] 10 mg PO BID 10/23/23 10/23/23 History Allergies Allergy/AdvReac Type Severity Reaction Status Date / Time Sulfa (Sulfonamide AdvReac Rash/Hives Verified 10/23/23 14:22 Antibiotics) Physical Exam Vitals: Vital Signs Temp Pulse Resp BP Pulse Ox 10/23/23 11:15 98.1 F 76 18 128/68 97 10/23/23 08:47 97.8 F 65 18 139/70 99 Intake and Output 10/22/23 10/23/23 10/23/23 22:59 06:59 14:59 Other: Weight 81.647 kg Results CBC & Chem 7: 10/23/23 09:11 10/23/23 09:11 Labs: Abnormal Lab Results - Last 24 Hours (Table) 10/23/23 10/23/23 Range/Units 09:10 09:11 Chloride 111 H (98-107) mmol/L Carbon Dioxide 17 L (22-30) mmol/L Glucose 187 H (74-99) mg/dL POC Glucose (mg/dL) 210 H (70-110) mg/dL Magnesium 1.5 L (1.6-2.3) mg/dL
[2023-10-23] MEDS: SCOPOLAMINE 1 MG/72 HR PATCH TRANSDERM STA (16:01)
[2023-10-23] MEDS: ASPIRIN 81 MG PO STA (16:25)
[2023-10-23] MEDS: INSULIN ASPART (NovoLOG) 100 UNIT/ML VIAL SQ SCH (17:30)
[2023-10-23] MEDS: ONDANSETRON 4 MG/2 ML VIAL IVP PRN (22:34)
[2023-10-23] MEDS: lisinopriL 10 MG TAB PO SCH (22:35)
[2023-10-23] MEDS: METOPROLOL TARTRATE 50 MG TAB PO SCH (22:35)
[2023-10-23] MEDS: MECLIZINE 25 MG TAB PO SCH (22:36)
[2023-10-23 23:08] LABS: Glucose,Whole Blood 86 mg/dL (70-110)
[2023-10-24] MEDS ORDERED: ALBUMIN HUMAN 25% 50 ML in EMPTY BAG 1 BAG IVPB SCH (08:30)
--- NOTE | 2023-10-24 09:05 | CT ---
EXAMINATION TYPE: CT angio head neck DATE OF EXAM: 10/23/2023 HISTORY: Intractable dizziness. COMPARISON: CT DLP: 1594.8 mGycm. Automated Exposure Control for Dose Reduction was Utilized. TECHNIQUE: CTA scan of the neck is performed with IV Contrast, patient injected with 65ml mL of Isov ue 370, axial images are obtained, coronal and sagittal reformatted images are reviewed. 3-D imaging cannot be performed at this time due to technical issues. This limits the examination to the source images for interpretation. FINDINGS: Carotid/Vascular Structures: There is a 3 vessel arch. Common carotid arteries bifurcate into internal and external carotid arteries without significant ratna w limiting stenosis. Left vertebral artery is dominant. Internal carotid arteries and vertebral arteries are patent to the skull base. Cervical of [place]: Vertebral basilar system appears normal. Posterior cerebral vasculature is unrema rkable. Internal carotid arteries bifurcate normally into A1 and M1 segments. A2 segments are normal. The anterior communicating artery is patent. Posterior communicating arteries are not clearly identified. IMPRESSION: 1. No flow-limiting stenosis bilateral carotid bifurcations. 2. Normal [place] of [place]. 3. Exam is limited to source images. Reconstructed images cannot be provided at this time. Follow-up may be beneficial. NASCET criteria was used in interpretation of this exam?
[2023-10-24 09:20] LABS: HCT 39.2 % (37.2-46.3); HGB 12.9 g/dL (12.0-15.0); MCH 30.6 pg (27.0-32.0); MCHC 32.9 g/dL (32.0-37.0); MCV 93.1 FL (80.0-97.0); Mean Platelet Volume 9.9 FL (9.5-12.2); NRBC Per 100 WBC 0 X 10*3/uL (0.00-0.01); Platelet Count 214 X 10*3/uL (140-440); RBC 4.21 X 10*6/uL (4.10-5.20); RDW 13.1 % (11.5-14.5); WBC 6.95 X 10*3/uL (4.50-10.00)
[2023-10-24] MEDS: ATORVASTATIN 80 MG TAB PO SCH (10:01)
[2023-10-24] MEDS: CLOPIDOGREL 75 MG TAB PO SCH (10:01)
[2023-10-24] MEDS: ASPIRIN 81 MG PO SCH (10:01)
[2023-10-24] MEDS: DAPAGLIFLOZIN PROPANEDIOL 10 MG TABLET PO SCH (10:01)
[2023-10-24] MEDS: ENOXAPARIN 40 MG/0.4 ML SYRINGE SQ SCH (10:01)
[2023-10-24 10:42] LABS: ALT 16 U/L (8-44); AST 21 U/L (13-35); Albumin 3.4 g/dL (3.8-4.9); Albumin/Globulin Ratio 1.62 Ratio (1.60-3.17); Alkaline Phosphatase 66 U/L (41-126); BUN/Creat Ratio 15.57 Ratio (12.00-20.00); Blood Urea Nitrogen 10.9 mg/dL (9.0-27.0); Calcium 8.6 mg/dL (8.7-10.3); Carbon Dioxide 20.9 mmol/L (21.6-31.8); Chloride 108 mmol/L (96-109); Globulin 2.1 g/dL (1.6-3.3); Glucose 111 mg/dL (70-110); Magnesium 1.9 mg/dL (1.5-2.4); Potassium 4.3 mmol/L (3.5-5.5); Sodium 141 mmol/L (135-145); Total Bilirubin 0.7 mg/dL (0.3-1.2); Total Protein 5.5 g/dL (6.2-8.2)
--- NOTE | 2023-10-24 11:16 | P.CRDCN ---
History of Present Illness Consult date: 10/24/23 Requesting physician: Jamison Anderson Reason for Consult (text): EKG changes, episode of chest pain Chief complaint: dizziness, nausea History of present illness: This is a pleasant 63-year-old female patient who follows in the office with Dr. Oates. She has a history of an MA and October 2022 at which time she underwent PCI of the LAD and also has known moderate disease in the OM1 and mild disease in the RCA, ischemic cardiomyopathy with an EF of 35 to 40% at that time, hypertension, hyperlipidemia, diabetes, does not follow regularly with a primary care physician. Presented with complaints of intractable dizziness with nausea and vomiting. Worse with position changes worse with sitting up and laying completely supine. She felt somewhat anxious and developed some tightness in the chest but this quickly resolved. She has had no symptoms to remind her of what she felt with her MA in 2022. EKG showed sinus mechanism with evidence of old MA consistent with patient's history. Troponins have been less than 0.012, less than 0.012 and 0.023. She has had no further complaints of chest discomfort. She continues to have complaints of dizziness and nausea when she sits up or lies completely flat. She had no complaints of dyspnea on exertion, orthopnea, PND or edema. Her activity levels been stable without any anginal symptoms. She has had no palpitations and no syncope. Past Medical History Past Medical History: Diabetes Mellitus Additional Past Medical History / Comment(s): RECENT INPT FOR COLITIS AND I NFLUENZA 04/17/14. NEW DX DIABETES History of Any Multi-Drug Resistant Organisms: None Reported Past Surgical History: Section, Cholecystectomy, Orthopedic Surgery, Tubal Ligation Additional Past Surgical History / Comment(s): LT KNEE SURGERY Past Anesthesia/Blood Transfusion Reactions: No Reported Reaction Past Psychological History: No Psychological Hx Reported Smoking Status: Former smoker Past Alcohol Use History: Occasional Past Drug Use History: None Reported - Past Family History Mother Family Medical History: Congestive Heart Failure (CHF) Medications and Allergies Home Medications Medication Instructions Recorded Confirmed Type Nitroglycerin Sl Tabs [Nitrostat] 0.4 mg SUBLINGUAL Q5M PRN #20 tab 10/04/22 10/23/23 Rx Atorvastatin [Lipitor] 80 mg PO DAILY 10/23/23 10/23/23 History Clopidogrel [Plavix] 75 mg PO DAILY 10/23/23 10/23/23 History Dapagliflozin Propanediol [Farxiga] 10 mg PO DAILY 10/23/23 10/23/23 History Metoprolol Tartrate [Lopressor] 50 mg PO BID-W/MEALS 10/23/23 10/23/23 History lisinopriL [Zestril] 10 mg PO BID 10/23/23 10/23/23 History Allergies Allergy/AdvReac Type Severity Reaction Status Date / Time Sulfa (Sulfonamide AdvReac Rash/Hives Verified 10/23/23 14:22 Antibiotics) Physical Exam Vitals: Vital Signs Temp Pulse Pulse Resp BP BP Pulse Ox 10/24/23 07:00 98.1 F 67 16 110/71 100 10/24/23 06:41 60 16 113/63 98 10/24/23 05:00 52 L 16 108/58 95 10/24/23 04:00 50 L 16 104/56 96 10/24/23 02:00 60 16 100/61 96 10/24/23 00:00 49 L 16 95/64 98 10/23/23 22:00 52 L 16 108/58 97 10/23/23 20:00 65 16 103/57 98 10/23/23 18:00 98.4 F 51 L 16 99/59 96 10/23/23 16:11 98.1 F 68 18 130/68 97 10/23/23 11:15 98.1 F 76 18 128/68 97 Intake and Output 10/23/23 10/24/23 10/24/23 22:59 06:59 14:59 Intake Total 236 Balance 236 Intake: Oral 236 Other: # Voids 1 Weight 81.647 kg PHYSICAL EXAMINATION: This is a 63-year-old male in no apparent distress at the time of my examination. VITAL SIGNS: Reviewed. HEENT: Head is atraumatic, normocephalic. Pupils are equal, round. Sclerae anicteric. Conjunctivae are clear. Mucous membranes of the mouth are moist. Neck is supple. There is no elevated jugular venous pressure. No carotid bruit is heard. CHEST EXAMINATION: Clear to auscultation bilaterally. No wheezes rales or rhonchi. Respirations even and nonlabored. HEART EXAMINATION: Heart regular, positive S1 and S2. No S3. No S4. Soft systolic murmur. ABDOMEN: Soft, nontender. Bowel sounds are heard. No organomegaly noted. EXTREMITIES: 2+ peripheral pulses with no evidence of peripheral edema and no calf tenderness noted. NEUROLOGIC EXAMINATION: Patient is awake, alert and oriented x3. Results 10/24/23 06:04 10/24/23 06:04 Cardiac Enzymes 10/23/23 10/23/23 10/24/23 Range/Units 15:22 18:15 06:04 AST 21 (13-35) U/L Troponin I <0.012 0.023 (0.000-0.034) ng/mL CBC 10/24/23 Range/Units 06:04 WBC 6.95 (4.50-10.00) X 10*3/uL RBC 4.21 (4.10-5.20) X 10*6/uL Hgb 12.9 (12.0-15.0) g/dL Hct 39.2 (37.2-46.3) % Plt Count 214 (140-440) X 10*3/uL Comprehensive Metabolic Panel 10/24/23 Range/Units 06:04 Sodium 141 (135-145) mmol/L Potassium 4.3 (3.5-5.5) mmol/L Chloride 108 (96-109) mmol/L Carbon Dioxide 20.9 L (21.6-31.8) mmol/L BUN 10.9 (9.0-27.0) mg/dL Creatinine 0.7 (0.6-1.5) mg/dL Glucose 111 H (70-110) mg/dL Calcium 8.6 L (8.7-10.3) mg/dL AST 21 (13-35) U/L ALT 16 (8-44) U/L Alkaline Phosphatase 66 (41-126) U/L Total Protein 5.5 L (6.2-8.2) g/dL Albumin 3.4 L (3.8-4.9) g/dL Current Medications Generic Name Dose Route Start Last Admin Trade Name Freq PRN Reason Stop Dose Admin Acetaminophen 650 mg 10/23/23 13:12 Acetaminophen Tab 325 Mg Tab PO Q6HR PRN Mild Pain or Fever > 100.5 Aspirin 81 mg 10/24/23 09:00 10/24/23 10:01 Aspirin 81 Mg PO 81 mg DAILY SCAR Administration Atorvastatin Calcium 80 mg 10/24/23 09:00 10/24/23 10:01 Atorvastatin 80 Mg Tab PO 80 mg DAILY SCAR Administration Clopidogrel Bisulfate 75 mg 10/24/23 09:00 10/24/23 10:01 Clopidogrel 75 Mg Tab PO 75 mg DAILY SCAR Administration Dapagliflozin 10 mg 10/24/23 09:00 10/24/23 10:01 Dapagliflozin Propanediol 10 Mg Tablet PO 10 mg DAILY SCAR Administration Dextrose/Water 25 ml 10/23/23 15:43 Dextrose 50% Syringe 50 Ml IVP PER PROTOCOL PRN Hypoglycemia Protocol Dextrose/Water 50 ml 10/23/23 15:43 Dextrose 50% Syringe 50 Ml IVP PER PROTOCOL PRN Hypoglycemia Protocol Enoxaparin Sodium 40 mg 10/24/23 09:00 10/24/23 10:01 Enoxaparin 40 Mg/0.4 Ml Syringe SQ 40 mg DAILY SCAR Administration Sodium Chloride 1,000 mls @ 75 mls/hr 10/23/23 10:45 10/24/23 01:50 Saline 0.9% IV Not Given .[id number] [facility] Insulin Aspart 0 unit 10/23/23 17:30 10/24/23 09:35 Insulin Aspart (Novolog) 100 Unit/Ml Vial SQ Not Given ACHS [facility] Protocol Lisinopril 10 mg 10/23/23 21:00 10/24/23 10:01 Lisinopril 10 Mg Tab PO 10 mg BID [facility] Administration Meclizine HCl 25 mg 10/23/23 18:00 10/24/23 10:01 Meclizine 25 Mg Tab PO 25 mg QID [facility] Administration Metoprolol Tartrate 50 mg 10/23/23 17:30 10/24/23 07:00 Metoprolol Tartrate 50 Mg Tab PO Not Given BID-W/MEALS [facility] Naloxone HCl 0.2 mg 10/23/23 13:12 Naloxone 0.4 Mg/Ml 1 Ml Vial IV Q2M PRN Opioid Reversal Nitroglycerin 0.4 mg 10/23/23 15:10 Nitroglycerin Sl Tabs 0.4 Mg Tab SUBLINGUAL Q5M PRN Chest Pain Ondansetron HCl 4 mg 10/23/23 13:12 10/23/23 22:34 Ondansetron 4 Mg/2 Ml Vial IVP 4 mg Q8HR PRN Administration Nausea And Vomiting Prochlorperazine Edisylate 10 mg 10/23/23 15:33 Prochlorperazine Inj 10 Mg/2 Ml Vial IVP Q6H PRN Nausea Intake and Output 10/23/23 10/24/23 10/24/23 22:59 06:59 14:59 Intake Total 236 Balance 236 Intake: Oral 236 Other: # Voids 1 Weight 81.647 kg 10/24/23 06:04 10/24/23 06:04 Assessment and Plan Assessment: #1 brief episode of chest tightness, acute coronary event has been ruled out #2 intractable dizziness with nausea and 2 episodes of emesis #3 hypertension #4 hyperlipidemia #5 diabetes mellitus type 2 #6 ischemic cardiomyopathy with an echocardiogram done in October 2022 showing an EF of 35-40%, per patient most recent echocardiogram did show improvement but the results of this are unavailable Plan: From cardiology's perspective medications were reviewed and we will continue the same. Will obtain a 2D echo with Doppler study to assess cardiac structure and function. Anticipate if the echocardiogram is stable patient will be discharged home in the next 24 hours. YARD CONDUCTOR note has been reviewed, I agree with a documented findings and plan of care. Patient was seen and examined.
[2023-10-24 12:17] LABS: Glucose,Whole Blood 141 mg/dL (70-110)
--- NOTE | 2023-10-24 15:16 | P.CNNES ---
History of Present Illness Consult date: 10/24/23 Requesting physician: Cody Jaramillo Reason for Consult: intractable dizziness History of Present Illness: This is a 63-year-old woman with history of diabetes and states is not taking any any medication because of financial reason, myocardial infarction about a year ago who presents emergency department because of dizziness. She stated that yesterday when she woke up around 8:40 AM she felt dizzy and felt the room spinning. Her last normal state was 1 AM that same day. She felt worse with getting up. She had nausea vomiting. In the last 1-1/2 weeks she has been having ringing in the ears and feels her right ear is muffled. Denies any focal weakness, numbness, visual disturbance. She feels her dizziness is 50% better compared to yesterday. She had a heart attack about 1 year ago and she is on aspirin and Plavix as well as is on statin and is compliant taking those medication. She has diabetes mellitus but denies being on any medication since her insurance would not cover the medication she supposed to be on insulin but stated that the insurance would not cover them and financially cannot afford them. She is also not follow-up with a primary care physician because of her insurance and financial issues. Some of the workup during this hospital visit consisted of: CBC with differential is unremarkable I reviewed the chemistry panel. Her serum glucose currently is 111. CT of the head is reported as no acute intracranial process. I personally reviewed the MRI and agree with the report. CT angiography of the head and neck is reported as no flow-limiting stenosis bilateral carotid bifurcation. Normal scoliosis. Exam limited to source images. Review of Systems The positive and negative as per HPI. Past Medical History Past Medical History: Diabetes Mellitus Additional Past Medical History / Comment(s): RECENT INPT FOR COLITIS AND INFLUENZA 04/17/14. NEW DX DIABETES History of Any Multi-Drug Resistant Organisms: None Reported Past Surgical History: Section, Cholecystectomy, Orthopedic Surgery, Tubal Ligation Additional Past Surgical History / Comment(s): LT KNEE SURGERY Past Anesthesia/Blood Transfusion Reactions: No Reported Reaction Past Psychological History: No Psychological Hx Reported Smoking Status: Former smoker Past Alcohol Use History: Occasional Past Drug Use History: None Reported - Past Family History Mother Family Medical History: Congestive Heart Failure (CHF) Medications and Allergies Home Medications Medication Instructions Recorded Confirmed Type Nitroglycerin Sl Tabs [Nitrostat] 0.4 mg SUBLINGUAL Q5M PRN #20 tab 10/04/22 10/23/23 Rx Atorvastatin [Lipitor] 80 mg PO DAILY 10/23/23 10/23/23 History Clopidogrel [Plavix] 75 mg PO DAILY 10/23/23 10/23/23 History Dapagliflozin Propanediol [Farxiga] 10 mg PO DAILY 10/23/23 10/23/23 History Metoprolol Tartrate [Lopressor] 50 mg PO BID-W/MEALS 10/23/23 10/23/23 History lisinopriL [Zestril] 10 mg PO BID 10/23/23 10/23/23 History Allergies Allergy/AdvReac Type Severity Reaction Status Date / Time Sulfa (Sulfonamide AdvReac Rash/Hives Verified 10/23/23 14:22 Antibiotics) Physical Examination - Vital Signs Vital Signs: Vital Signs Temp Pulse Pulse Resp BP BP Pulse Ox 10/24/23 14:32 98.3 F 61 16 108/66 98 10/24/23 07:00 98.1 F 67 16 110/71 100 10/24/23 06:41 60 16 113/63 98 10/24/23 05:00 52 L 16 108/58 95 10/24/23 04:00 50 L 16 104/56 96 10/24/23 02:00 60 16 100/61 96 10/24/23 00:00 49 L 16 95/64 98 10/23/23 22:00 52 L 16 108/58 97 10/23/23 20:00 65 16 103/57 98 10/23/23 18:00 98.4 F 51 L 16 99/59 96 10/23/23 16:11 98.1 F 68 18 130/68 97 Intake and Output 10/24/23 10/24/23 10/24/23 06:59 14:59 22:59 Intake Total 236 Balance 236 Intake: Oral 236 Other: Voiding Method Bedside Commode # Voids 3 Weight 81.647 kg GENERAL: The patient is sitting on side of bed and is not in acute distress. NEUROLOGICAL: Higher mental function: The patient is awake, alert, oriented to self, place and time. Patient is following commands. No aphasia and no neglect. Cranial nerves: The pupils are round, equal and reactive to light and accommodation. Visual streeter are full to confrontation throughout. Extraocular movement is intact no nystagmus is noted. Facial sensation is normal to touch throughout. The facial strength is normal throughout. Hearing is normal bilaterally to hand rub. Tongue is midline and moved [id number] without any difficulty. No dysarthria is noted. Shoulder shrug is normal bilaterally. Motor: Gait was attempted but patient was dizzy upon getting up so had to be aborted. The strength is 5 over 5 throughout. Normal tone and bulk. Cerebellum: Normal finger to nose heel to ellis bilaterally. Sensation: Sensation is normal to touch throughout. Reflexes (right/left): 2+ throughout except ankles are 1+ Plantars are downgoing bilaterally. Results - Laboratory Findings CBC and BMP: 10/24/23 06:04 10/24/23 06:04 Abnormal Lab Findings: Abnormal Labs 10/23/23 10/23/23 10/24/23 09:10 09:11 06:04 Chloride 111 H Carbon Dioxide 17 L 20.9 L Anion Gap 12.10 H Glucose 187 H 111 H POC Glucose (mg/dL) 210 H Calcium 8.6 L Magnesium 1.5 L Total Protein 5.5 L Albumin 3.4 L 10/24/23 12:15 Chloride Carbon Dioxide Anion Gap Glucose POC Glucose (mg/dL) 141 H Calcium Magnesium Total Protein Albumin Assessment and Plan Assessment: This is a 63-year-old woman with history of diabetes and is not medication because of insurance not covering insulin and financial reason who presents because of dizziness since yesterday and having right ear ringing and muffled nausea and vomiting. Today her dizziness is 50% better compared to initial presentation. There is no focal deficit on examination. Acute vertigo likely due to peripheral Diabetes mellitus patient is not on any medications at home since insurance not covering and financial issues. Her last hemoglobin A1c was on 10/2022 it was 10.4 History of myocardial infarction about a year ago Plan: MRI of the brain is ordered and is pending Patient is on home medication of aspirin 81, Plavix 75 and Lipitor 80 mg nightly Yesterday the patient received Valium, Ativan, meclizine, Reglan, Zofran and she is showing improvements. Continue meclizine 25 mg 4 times daily for 7 days and after that as needed. MRI of the brain is negative for any acute or subacute stroke then recommend the patient to be evaluated by ENT as an outpatient and consider bladder rehab therapy Regarding her diabetes melitis medication and financial needs will defer that to the primary and case management. Will defer rest of the medical management to primary and other specialist Discussed with the patient and the primary team nurse practitioner. Thank you for the consultation. Dr. Dominguez will resume neurology service tomorrow A.M. Time with Patient: Greater than 30
--- NOTE | 2023-10-24 15:18 | P.PN ---
Subjective Progress Note Date: 10/24/23 Hospital Course: Patient is a very pleasant 63-year-old female with a past medical history of CAD status post STEMI and stenting of LAD 10/01/2022, hypertension, hyperlipidemia, and [id number] diabetes mellitus. She presented to the emergency department with a chief complaint of intractable dizziness. Patient reports awakening this morning with significant dizziness/lightheadedness shortly followed by feeling of panic almost like a panic attack with chest pain, nausea, and intractable vomiting. She reports that she has a history of vertigo but has never experienced symptoms like this before. Patient reports feeling as though the room and everything around her is constantly spinning and that symptoms worsen with movement but do not improve at rest or with closing her eyes. She denies any recent medication changes, falls or injuries, headache, neck pain, back pain, fevers, chills, acute changes in vision or hearing, difficulties with or changes in speech, dysphagia, palpitations, shortness of breath, cough or congestion, or experiencing any focal numbness/tingling/weakness/swelling in her extremities. Patient reports her symptoms became so severe she vomited down her entire hallway and had to call EMS to bring her to the hospital. Upon arrival to our facility patient underwent evaluation in the emergency department. Vital signs upon arrival show blood pressure 139/70, heart rate 65, respiratory rate 18, temp 97.8 F, and SpO2 of 99% on room air. He was completed showing sinus bradycardia with T wave inversion in inferior lead III and anteroseptal leads V2 , V3, and V4 with no ST abnormalities noted upon personal review and interpretation. Chest x-ray was negative for acute cardiopulmonary process. CT brain negative for acute intracranial process. Labs were completed and reviewed. CBC was unremarkable. Coagulation profile normal findings. BMP revealing non-anion gap metabolic acidosis with chloride of 111, bicarb 17, and anion gap of 9 and mild hyperglycemia with blood glucose of 187. Magnesium was normal findings at 1.5. Liver profile unremarkable. Troponin was negative at less than 0.012. Patient was given 1.5 L bolus of IV fluids, Ativan, meclizine, scopolamine, Reglan, and Zofran and continues to have persistent intractable dizziness with nausea. She reports resolution of chest pain and states it has been approximately 2 hours since she last vomited. Patient admitted under our services with consultation to neurology and cardiology for evaluation. Physical exam: Patient seen and fully evaluated at bedside this morning. She appears to be doing much better this morning. She was eating breakfast at time of assessment. She reports mild nausea remains but states dizziness is now intermittent and seems to be okay at this time at rest or make worsening if she lies flat or moves. Reports intermittent tinnitus times many months but currently denies. Vital signs reviewed and stable. General: Nontoxic and appears stated age. No acute distress. Derm: Skin warm and dry, normal coloration for ethnicity. Head: Atraumatic, normocephalic and symmetric. Eyes: EOMs intact, no lid lag, and anicteric sclera Mouth: no lip lesions, mucus membranes moist Cardiovascular: regular rate and rhythm with normal S1S2, no murmur, positive posterior tibial pulses bilaterally, and cap refill < 2 seconds. Lungs: Respirations even, regular, and unlabored on room air. Lungs CTA bilaterally, no rhonchi, no rales, no wheezing, and no accessory muscle usage. Abdominal: soft, nontender to palpation, no guarding, no appreciable organomegaly Ext: ROM intact. No gross muscle atrophy, no edema, no contractures Neuro: Speech clear, face symmetrical and CN II-XII grossly intact with no noted focal neuro deficits Psych: Alert and oriented to person, place, time, and situation. Appropriate and pleasant affect. Assessment and Plan of Care: Acute persistant and intractable dizziness Intractable Nausea, secondary to above Chest pain with EKG changes, rule out acute coronary event Non-anion gap metabolic acidosis Diabetes mellitus with hyperglycemia History of CAD with stenting to LAD Hypertension Hyperlipidemia Hypomagnesemia, resolved -Cardiology consulted for reports of chest pain and EKG changes, reviewed documentation in chart. -Neurology consulted for persistent intractable dizziness despite treatment, discussed plan of care with neurologist and he is recommending MRI brain with and without contrast. -Patient placed on continuous telemetry monitoring -Troponins trended resulting at less than 0.012, less than 0.012, and 0.023. It is negative at 0.38. -Continue neurochecks every 4 hours and fall precautions in place. -Continue scheduled meclizine 25 mg 4 times daily. -Continue cardiac medication regimen with aspirin 81 mg daily, Plavix 75 mg juwan y, atorvastatin 80 mg nightly, Farxiga 10 mg daily, lisinopril 10 mg twice daily, and metoprolol 50 mg twice daily. -Continue with gentle IV fluid hydration with 0.9% normal saline at 75 cc/h. -Patient started on glycemic protocol with NovoLog sliding scale for management of diabetes with hyperglycemia. Data and imaging reviewed: Morning labs reviewed. CBC unremarkable. BMP revealing high anion gap metabolic acidosis with chloride of 108, bicarb 20.9, and anion gap of 12.10. Blood glucose 111. Magnesium 1.9. Liver profile unremarkable with exception of mildly low albumin of 3.4 and protein of 5.5. Vital signs reviewed. Blood pressure 110/71, heart rate 67, respiratory rate 16, temp 98.1 F, and SpO2 100% on room air. CODE STATUS: Full code DVT prophylaxis: Lovenox Anticipated discharge date: Pending clinical course Anticipated discharge place: Home Patient was seen independently by Nurse Practitioner. This document was prepared using [employer] dictation software. Please allow for errors in [employer] sticker while rare they do occur. Cody Jaramillo H[employer]ER rendered care for this patient independently, reviewed the findings and plan as documented in the note above. I did not physically speak with or examine the patient on this date. Objective - Vital Signs Vital signs: Vital Signs Temp 98.1 F 10/24/23 07:00 Pulse 67 10/24/23 07:00 Resp 16 10/24/23 07:00 BP 110/71 10/24/23 07:00 Pulse Ox 100 10/24/23 07:00 FiO2 Intake & Output 10/23/23 10/24/23 10/24/23 18:59 06:59 18:59 Weight 81.647 kg - Labs CBC & Chem 7: 10/24/23 06:04 10/24/23 06:04 Labs: Abnormal Lab Results - Last 24 Hours (Table) 10/23/23 10/23/23 Range/Units 09:10 09:11 Chloride 111 H (98-107) mmol/L Carbon Dioxide 17 L (22-30) mmol/L Glucose 187 H (74-99) mg/dL POC Glucose (mg/dL) 210 H (70-110) mg/dL Magnesium 1.5 L (1.6-2.3) mg/dL
[2023-10-24 17:35] LABS: Glucose,Whole Blood 111 mg/dL (70-110)
[2023-10-24 20:10] LABS: Glucose,Whole Blood 130 mg/dL (70-110)
[2023-10-25 05:15] LABS: Glucose,Whole Blood 125 mg/dL (70-110)
[2023-10-25 12:11] LABS: Glucose,Whole Blood 133 mg/dL (70-110)
--- NOTE | 2023-10-25 13:42 | P.PN ---
Subjective Progress Note Date: 10/25/23 Patient initially seen by Dr. Vj Triana. Please refer to his note for details. Patient is a 63-year-old female with acute vertigo. Patient states she is still little dizzy when she moves, but not when she is resting. Otherwise she is much better than yesterday. Denies any focal symptoms like slurred speech facial droop, numbness tingling or focal weakness. Some of the workup during this hospital visit consisted of: CBC with differential is unremarkable Chemistry panel. Her serum glucose currently is 111. CT of the head is reported as no acute intracranial process. CT angiography of the head and neck is reported as no flow-limiting stenosis bilateral carotid bifurcation. Normal scoliosis. Exam limited to source images. Objective - Vital Signs Vital signs: Vital Signs Temp 98.5 F 10/25/23 07:00 Pulse 57 L 10/25/23 07:00 Resp 16 10/25/23 07:00 BP 103/64 10/25/23 07:00 Pulse Ox 98 10/25/23 07:00 FiO2 Intake & Output 10/24/23 10/25/23 10/25/23 18:59 06:59 18:59 Intake Total 354 Balance 354 Intake: Oral 354 Other: Voiding Method Bedside Commode # Voids 3 2 - Exam Patient's mental status, speech and language functions are normal. Cranial nerves significant for normal visual streeter, extraocular muscles, no nystagmus, face is symmetric and tongue protrudes midline. On muscle strength testing there is no pronator drift and the strength is normal. No ataxia. Sensory is equal. - Labs CBC & Chem 7: 10/24/23 06:04 10/24/23 06:04 Labs: Abnormal Lab Results - Last 24 Hours (Table) 10/24/23 10/24/23 10/24/23 Range/Units 06:04 17:33 20:08 POC Glucose (mg/dL) 111 H 130 H (70-110) mg/dL Hemoglobin A1c 8.8 H (<=6.0) % 10/25/23 10/25/23 Range/Units 05:13 12:09 POC Glucose (mg/dL) 125 H 133 H (70-110) mg/dL Hemoglobin A1c (<=6.0) % Assessment and Plan Assessment: This is a 63-year-old woman with history of diabetes and is not medication because of insurance not covering insulin and financial reason who presents because of dizziness since yesterday and having right ear ringing and muffled nausea and vomiting. Today her dizziness is 50% better compared to initial presentation. There is no focal deficit on examination. Acute vertigo likely due to peripheral Diabetes mellitus patient is not on any medications at home since insurance not covering and financial issues. Her last hemoglobin A1c was on 10/2022 it was 10.4 History of myocardial infarction about a year ago Plan: MRI of the brain is ordered and is pending, apparently will be done tomorrow. Patient is on home medication of aspirin 81, Plavix 75 and Lipitor 80 mg nightly Yesterday the patient received Valium, Ativan, meclizine, Reglan, Zofran and she is showing improvements. Continue meclizine 25 mg 4 times daily for 7 days and after that as needed. MRI of the brain is negative for any acute or subacute stroke then recommend the patient to be evaluated by ENT as an outpatient and consider vestibular rehab therapy Regarding her diabetes melitis medication and financial needs will defer that to the primary and case management. Her hemoglobin A1c is 8.8. Target A1c <7.0. We will check B12, folate. Will defer rest of the medical management to primary and other specialist
--- NOTE | 2023-10-25 14:36 | P.PN ---
Subjective Progress Note Date: 10/25/23 Reason for Consult (text): EKG changes, episode of chest pain Chief complaint: dizziness, nausea History of present illness: This is a pleasant 63-year-old female patient who follows in the office with Dr. Oates. She has a history of an NE and October 2022 at which time she underwent PCI of the LAD and also has known moderate disease in the OM1 and mild disease in the RCA, ischemic cardiomyopathy with an EF of 35 to 40% at that time, hypertension, hyperlipidemia, diabetes, does not follow regularly with a primary care physician. Presented with complaints of intractable dizziness with nausea and vomiting. Worse with position changes worse with sitting up and laying completely supine. She felt somewhat anxious and developed some tightness in the chest but this quickly resolved. She has had no symptoms to remind her of what she felt with her NE in 2022. EKG showed sinus mechanism with evidence of old NE consistent with patient's history. Troponins have been less than 0.012, less than 0.012 and 0.023. She has had no further complaints of chest discomfort. She continues to have complaints of dizziness and nausea when she sits up or lies completely flat. She had no complaints of dyspnea on exertion, orthopnea, PND or edema. Her activity levels been stable without any anginal symptoms. She has had no palpitations and no syncope. 10/24 Patient denies having any chest pain. She does complain of dizziness and nausea when she moves. Patient is scheduled for MRI of the brain tomorrow and is followed by neurology. Blood pressure 103/64, heart rate 57, pulse ox 98% on room air. PHYSICAL EXAMINATION: This is a 63-year-old male in no apparent distress at the time of my examination. VITAL SIGNS: Reviewed. HEENT: Head is atraumatic, normocephalic. Pupils are equal, round. Sclerae anicteric. Conjunctivae are clear. Mucous membranes of the mouth are moist. Neck is supple. There is no elevated jugular venous pressure. No carotid bruit is heard. CHEST EXAMINATION: Clear to auscultation bilaterally. No wheezes rales or rhonchi. Respirations even and nonlabored. HEART EXAMINATION: Heart regular, positive S1 and S2. No S3. No S4. Soft systolic murmur. ABDOMEN: Soft, nontender. Bowel sounds are heard. No organomegaly noted. EXTREMITIES: 2+ peripheral pulses with no evidence of peripheral edema and no calf tenderness noted. NEUROLOGIC EXAMINATION: Patient is awake, alert and oriented x3. Assessment: #1 brief episode of chest tightness, acute coronary event has been ruled out #2 intractable dizziness with nausea and 2 episodes of emesis #3 hypertension #4 hyperlipidemia #5 diabetes mellitus type 2 #6 ischemic cardiomyopathy with an echocardiogram done in October 2022 showing an EF of 35-40%, per patient most recent echocardiogram did show improvement but the results of this are unavailable Plan: Continue current cardiac medications: Aspirin 81 mg daily, atorvastatin, Plavix, Farxiga, lisinopril Decrease Lopressor to 25 mg twice daily as patient is on the bradycardic side Will obtain a 2D echo with Doppler study to assess cardiac structure and function. If the echocardiogram is stable, [facility] Nurse practitioner note has been reviewed, I agree with documented findings and plan of care. Patient was seen and examined. Objective - Vital Signs Vital signs: Vital Signs Temp 98.5 F 10/25/23 07:00 Pulse 57 L 10/25/23 07:00 Resp 16 10/25/23 07:00 BP 103/64 10/25/23 07:00 Pulse Ox 98 10/25/23 07:00 FiO2 Intake & Output 10/24/23 10/25/23 10/25/23 18:59 06:59 18:59 Intake Total 354 Balance 354 Intake: Oral 354 Other: Voiding Method Bedside Commode # Voids 3 2 - Labs CBC & Chem 7: 10/24/23 06:04 10/24/23 06:04 Labs: Abnormal Lab Results - Last 24 Hours (Table) 10/24/23 10/24/23 10/24/23 Range/Units 06:04 17:33 20:08 POC Glucose (mg/dL) 111 H 130 H (70-110) mg/dL Hemoglobin A1c 8.8 H (<=6.0) % 10/25/23 10/25/23 Range/Units 05:13 12:09 POC Glucose (mg/dL) 125 H 133 H (70-110) mg/dL Hemoglobin A1c (<=6.0) %
--- NOTE | 2023-10-25 14:40 | P.PN ---
Subjective Progress Note Date: 10/25/23 Hospital Course: Patient is a very pleasant 63-year-old female with a past medical history of CAD status post STEMI and stenting of LAD 10/01/2022, hypertension, hyperlipidemia, and [id number] diabetes mellitus. She presented to the emergency department on 10/23/23 with a chief complaint of intractable dizziness and nausea. Upon arrival to our facility patient underwent evaluation in the emergency department. Vital signs upon arrival show blood pressure 139/70, heart rate 65, respiratory rate 18, temp 97.8 F, and SpO2 of 99% on room air. EKG was completed showing sinus bradycardia with T wave inversion in inferior lead III and anteroseptal leads V2 , V3, and V4 with no ST abnormalities noted upon personal review and interpretation. Chest x-ray was negative for acute cardiopulmonary process. CT brain negative for acute intracranial process. Labs were completed and reviewed. CBC was unremarkable. Coagulation profile normal findings. BMP revealing non-anion gap metabolic acidosis with chloride of 111, bicarb 17, and anion gap of 9 and mild hyperglycemia with blood glucose of 187. Magnesium was normal findings at 1.5. Liver profile unremarkable. Troponin was negative at less than 0.012. Patient was given 1.5 L bolus of IV fluids, Ativan, meclizine, scopolamine, Reglan, and Zofran and continues to have persistent intractable dizziness with nausea. She reports resolution of chest pain and states it has been approximately 2 hours since she last vomited. Patient admitted under our services with consultation to neurology and cardiology for evaluation. Physical exam: Patient seen and fully evaluated at bedside this morning. She appears to be doing well this morning. She reports only mild dizziness with movement but currently denies any complaints at this time. Patient reports eating breakfast without any episodes of nausea. She is awaiting completion of echocardiogram and MRI today. Vital signs reviewed and stable. General: Nontoxic and appears stated age. No acute distress. Derm: Skin warm and dry, normal coloration for ethnicity. Head: Atraumatic, normocephalic and symmetric. Eyes: EOMs intact, no lid lag, and anicteric sclera Mouth: no lip lesions, mucus membranes moist Cardiovascular: regular rate and rhythm with normal S1S2, no murmur, positive posterior tibial pulses bilaterally, and cap refill < 2 seconds. Lungs: Respirations even, regular, and unlabored on room air. Lungs CTA bilaterally, no rhonchi, no rales, no wheezing, and no accessory muscle usage. Abdominal: soft, nontender to palpation, no guarding, no appreciable organomegaly Ext: ROM intact. No gross muscle atrophy, no edema, no contractures Neuro: Speech clear, face symmetrical and CN II-XII grossly intact with no noted focal neuro deficits Psych: Alert and oriented to person, place, time, and situation. Appropriate and pleasant affect. Assessment and Plan of Care: Acute persistant and intractable dizziness Intractable Nausea, secondary to above Chest pain with EKG changes, rule out acute coronary event Non-anion gap metabolic acidosis Diabetes mellitus with hyperglycemia History of CAD with stenting to LAD Hypertension Hyperlipidemia Hypomagnesemia, resolved -Cardiology consulted for reports of chest pain and EKG changes, reviewed documentation in chart. -Neurology consulted for persistent intractable dizziness despite treatment, discussed plan of care with neurologist and he is recommending MRI brain with and without contrast. -Patient placed on continuous telemetry monitoring -Troponins trended resulting at less than 0.012, less than 0.012, and 0.023. D- dimer negative at 0.38. -Continue neurochecks every 4 hours and fall precautions in place. -Continue scheduled meclizine 25 mg 4 times daily. -Continue cardiac medication regimen with aspirin 81 mg daily, Plavix 75 mg daily, atorvastatin 80 mg nightly, Farxiga 10 mg daily, lisinopril 10 mg twice daily, and metoprolol 50 mg twice daily. -Continue with gentle IV fluid hydration with 0.9% normal saline at 75 cc/h. -Patient started on glycemic protocol with NovoLog sliding scale for management of diabetes with hyperglycemia. Data and imaging reviewed: Labs reviewed. CBC unremarkable. BMP revealing high anion gap metabolic acidosis with chloride of 108, bicarb 20.9, and anion gap of 12.10. Blood glucose 111. Magnesium 1.9. Liver profile unremarkable with exception of mildly low albumin of 3.4 and protein of 5.5. Vital signs reviewed. Blood pressure 103/64, heart rate 57, respiratory rate 16, temp 98.5 F, and SpO2 of 90% on room air. CODE STATUS: Full code DVT prophylaxis: Lovenox Anticipated discharge date: Discharge pending completion of MRI and echocardiogram, if normal plans for discharge home. Anticipated discharge place: Home Patient was seen independently by Nurse Practitioner. This document was prepared using Dragon dictation software. Please allow for errors in legislative analyst while rare they do occur. Cody Jaramillo SOLAR POWER INSTALLER rendered care for this patient independently, reviewed the findings and plan as documented in the note above. I did not physically speak with or examine the patient on this date. Objective - Vital Signs Vital signs: Vital Signs Temp 97.5 F L 10/25/23 02:23 Pulse 63 10/25/23 02:23 Resp 16 10/25/23 02:23 BP 129/73 10/25/23 02:23 Pulse Ox 99 10/25/23 02:23 FiO2 Intake & Output 10/24/23 10/25/23 10/25/23 18:59 06:59 18:59 Intake Total 354 Balance 354 Intake: Oral 354 Other: Voiding Method Bedside Commode # Voids 3 2 - Labs CBC & Chem 7: 10/24/23 06:04 10/24/23 06:04 Labs: Abnormal Lab Results - Last 24 Hours (Table) 10/24/23 10/24/23 10/24/23 Range/Units 06:04 06:04 12:15 Carbon Dioxide 20.9 L (21.6-31.8) mmol/L Anion Gap 12.10 H (4.00-12.00) mmol/L Glucose 111 H (70-110) mg/dL POC Glucose (mg/dL) 141 H (70-110) mg/dL Hemoglobin A1c 8.8 H (<=6.0) % Calcium 8.6 L (8.7-10.3) mg/dL Total Protein 5.5 L (6.2-8.2) g/dL Albumin 3.4 L (3.8-4.9) g/dL 10/24/23 10/24/23 10/25/23 Range/Units 17:33 20:08 05:13 Carbon Dioxide (21.6-31.8) mmol/L Anion Gap (4.00-12.00) mmol/L Glucose (70-110) mg/dL POC Glucose (mg/dL) 111 H 130 H 125 H (70-110) mg/dL Hemoglobin A1c (<=6.0) % Calcium (8.7-10.3) mg/dL Total Protein (6.2-8.2) g/dL Albumin (3.8-4.9) g/dL
[2023-10-25 17:08] LABS: Glucose,Whole Blood 170 mg/dL (70-110)
[2023-10-25] MEDS: METOPROLOL TARTRATE 25 MG TAB PO SCH (17:45)
[2023-10-25 19:33] VITALS: RESP 16
[2023-10-25 20:27] LABS: Glucose,Whole Blood 126 mg/dL (70-110)
[2023-10-26 05:32] LABS: Glucose,Whole Blood 112 mg/dL (70-110)
[2023-10-26 07:26] VITALS: BP 118/65; PULSE 57; TEMP 98.3
[2023-10-26] MEDS: LORazepam 1 MG TAB PO STA ×2 (09:30→09:34)
--- NOTE | 2023-10-26 09:42 | CA ---
Transthoracic Echo Report Name: Lorenza Cartagena Age: 63 Gender: F : 1960 Exam Date: 10/25/2023 16:33 Exam Location: [facility] Ht (in): 63 Wt (lb): 180 Ordering Physician: Kylah Ren Attending/Referring Phys: [id number], Mikal Animal Control Specialist Dee Adams RDCS Procedure CPT: Indications: LVF Cardiac Hx: Technical Quality: Technically difficult study Contrast 1: Definity Total Dose (mL): 2 Contrast 2: Total Dose (mL): MEASUREMENTS (Male / Female) Normal Values 2D ECHO LV Diastolic Diameter PLAX 3.8 cm 4.2 - 5.9 / 3.9 - 5.3 cm LV Systolic Diameter PLAX 2.6 cm IVS Diastolic Thickness 1.3 cm 0.6 - 1.0 / 0.6 - 0.9 cm LVPW Diastolic Thickness 1.4 cm 0.6 - 1.0 / 0.6 - 0.9 cm LV Relative Wall Thickness 0.7 RV Internal Dim ED PLAX 4.1 cm LA Volume 47.4 cm??? 18 - 58 / 22 - 52 cm??? LA Volume Index 24.5 cm???/m??? 16 - 28 cm???/m??? M-MODE Aortic Root Diameter MM 2.8 cm LA Systolic Diameter MM 5.1 cm LA Ao Ratio MM 1.8 AV Cusp Separation MM 1.7 cm DOPPLER AV Peak Velocity 141.7 cm/s AV Peak Gradient 8.0 mmHg AV Mean Velocity 110.8 cm/s AV Mean Gradient 5.2 mmHg AV Velocity Time Integral 33.3 cm LVOT Peak Velocity 106.0 cm/s LVOT Peak Gradient 4.5 mmHg LVOT Velocity Time Integral 24.4 cm MV Area PHT 2.9 cm??? Mitral E Point Velocity 87.3 cm/s Mitral A Point Velocity 93.7 cm/s Mitral E to A Ratio 0.9 MV Deceleration Time 259.6 ms MV E' Velocity 7.4 cm/s Mitral E to MV E' Ratio 11.7 TR Peak Velocity 231.4 cm/s TR Peak Gradient 21.4 mmHg Right Ventricular Systolic Press 26.2 mmHg FINDINGS Left Ventricle Left ventricular cavity size normal. Mild concentric left ventricular hypertrophy. Normal left ventricular systolic function with no obvious regional wall motion abnormalities. Left ventricular ejection fraction is estimated at 55-60 %. Indeterminate diastolic dysfunction. Right Ventricle Mild right ventricular dilatation with normal systolic function. Right ventricular systolic pressure within normal limits. Right Atrium Mild right atrial dilatation. Left Atrium Normal left atrial size. Mitral Valve Structurally normal mitral valve. Mild mitral annular calcification. Mild mitral regurgitation. Aortic Valve Trileaflet aortic valve. No aortic valve stenosis or regurgitation. Tricuspid Valve Structurally normal tricuspid valve. Mild tricuspid regurgitation. Pulmonic Valve Structurally normal pulmonic valve. Pericardium No pericardial effusion. Aorta Normal size aortic root and proximal ascending aorta. CONCLUSIONS LVEF 55 to 60% Normal LV cavity size. Mild concentric LVH No obvious regional wall motion abnormality Mild RV dilatation. Normal RV systolic function Mild MR and mild TR No other significant valvular dysfunction Previewed by: Dr Jermaine Gan (Electronically Signed) Final Date: 26 October 2023 09:40
--- NOTE | 2023-10-26 10:32 | MR ---
EXAMINATION TYPE: MR brain wo/w con DATE OF EXAM: 10/26/2023 10:19 AM CLINICAL INDICATION:Female, 63 years old with history of dizziness; COMPARISON: 10/23/2023. TECHNIQUE: Multi planar, multi sequence imaging was performed through the brain including: T1, T2, In version recovery, susceptibility weighted imaging and gradient echo imaging and Diffusion weighted im aging. The patient was then given intravenous contrast and multi planar, T1 fat-saturation images wer e obtained. IV Contrast: 8 cc Gadavist FINDINGS: The ziegler-white junctions, ventricular system, basal cisterns appear unremarkable. Diffusion-weighted imaging shows no evidence of restricted diffusion to suggest acute/subacute infarct. Intracranial ar terial flow voids are maintained. Midline structures show no abnormality. Minimal scattered foci of h igh T2 signal intensity are seen within the periventricular white matter. The susceptibility weighted images do not reveal any evidence for micro-hemorrhage. After administration of gadolinium, no abnor mal enhancement is seen. The bone marrow signal is within normal limits. Paranasal sinuses and mastoid air cells: No significant paranasal sinus disease. Visualized orbits: Orbital contents are intact. IMPRESSION: 1. No evidence of intracranial mass, acute/subacute infarct, or abnormal enhancement. 2. Minimal Nonspecific white matter changes, likely related to small vessel ischemic disease.
--- NOTE | 2023-10-26 11:49 | P.PN ---
Subjective Progress Note Date: 10/26/23 10/26/2023: Patient was seen for a follow-up. Patient states she is feeling much better. Still feels slightly dizzy. Denies any new concerns. 10/25/2023: Patient initially seen by Dr. Vj Triana. Please refer to his note for details. Patient is a 63-year-old female with acute vertigo. Patient states she is still little dizzy when she moves, but not when she is resting. Otherwise she is much better than yesterday. Denies any focal symptoms like slurred speech facial droop, numbness tingling or focal weakness. Some of the workup during this hospital visit consisted of: CBC with differential is unremarkable Chemistry panel. Her serum glucose currently is 111. CT of the head is reported as no acute intracranial process. CT angiography of the head and neck is reported as no flow-limiting stenosis bilateral carotid bifurcation. Normal scoliosis. Exam limited to source images. Objective - Vital Signs Vital signs: Vital Signs Temp 98.3 F 10/26/23 07:00 Pulse 57 L 10/26/23 07:00 Resp 16 10/26/23 07:00 BP 118/65 10/26/23 07:00 Pulse Ox 97 10/26/23 07:00 FiO2 Intake & Output 10/25/23 10/26/23 10/26/23 18:59 06:59 18:59 Intake Total 236 Balance 236 Intake: Oral 236 Other: # Voids 1 2 - Exam Patient's mental status, speech and language functions are normal. Cranial nerves significant for normal visual streeter, extraocular muscles, no nystagmus, face is symmetric and tongue protrudes midline. On muscle strength testing there is no pronator drift and the strength is normal. No ataxia. Sensory is equal. - Labs CBC & Chem 7: 10/24/23 06:04 10/24/23 06:04 Labs: Abnormal Lab Results - Last 24 Hours (Table) 10/25/23 10/25/23 10/25/23 Range/Units 12:09 17:06 20:25 POC Glucose (mg/dL) 133 H 170 H 126 H (70-110) mg/dL 10/26/23 Range/Units 05:28 POC Glucose (mg/dL) 112 H (70-110) mg/dL Assessment and Plan Assessment: This is a 63-year-old woman with history of diabetes and is not medication because of insurance not covering insulin and financial reason who presents because of dizziness since yesterday and having right ear ringing and muffled nausea and vomiting. Today her dizziness is 50% better compared to initial presentation. There is no focal deficit on examination. Acute vertigo likely due to peripheral Diabetes mellitus patient is not on any medications at home since insurance not covering and financial issues. Her last hemoglobin A1c was on 10/2022 it was 10.4 History of myocardial infarction about a year ago Mild B12 and folate deficiency Plan: MRI of the brain was completed, and is completely normal. No evidence of acute ischemic process. No abnormal signal. Paranasal sinuses are clear. I personally reviewed MRI, agree with the findings. Patient is on home medication of aspirin 81, Plavix 75 and Lipitor 80 mg nightly Yesterday the patient received Valium, Ativan, meclizine, Reglan, Zofran and she is showing improvements. Continue meclizine 25 mg 4 times daily for 7 days and after that as needed. Regarding her diabetes melitis medication and financial needs will defer that to the primary and case management. Her hemoglobin A1c is 8.8. Target A1c <7.0. B12 377, folate 8.6. Patient has somewhat borderline B12 and folate level. We will start B12 and folate replacement. Neurologically clear for discharge. If the dizziness persists, may follow-up with ENT outpatient. Will defer rest of the medical management to primary and other specialist
[2023-10-26 12:06] LABS: Glucose,Whole Blood 121 mg/dL (70-110)
--- NOTE | 2023-10-26 12:25 | P.DS ---
Providers Date of admission: 10/23/23 12:55 Expected date of discharge: 10/26/23 Attending physician: Jamison Anderson MD Consults: 10/23/23 15:09 Consult Physician Routine Consulting Provider: Vj Triana Consult Reason/Comments: intractable dizziness Do you want consulting provider notified?: Yes 10/23/23 15:25 Consult Physician Routine Consulting Provider: Josselyn Oates Consult Reason/Comments: EKG changes, episode of chest pain and intractable dizziness Do you want consulting provider notified?: Yes Primary care physician: Stated None Hospital Course: Discharge Diagnosis: Vertigo with acute persistant and intractable dizziness. Significantly improved. Cardiac and neurology workup negative. Patient discharged home on meclizine 25 mg 4 times daily as needed for episodes of dizziness. Intractable Nausea, secondary to above. Resolved. Chest pain with EKG changes, rule out acute coronary event Non-anion gap metabolic acidosis Diabetes mellitus with hyperglycemia. Patient had elevated hemoglobin A1c of 8. 8%. Patient states that she will not take insulin reporting that she has been discharged on this previously and she cannot afford it and will not take this medication. Patient instead discharged home on metformin 500 mg twice daily and glipizide 5 mg daily in addition to Farxiga 10 mg daily. Patient strongly encouraged to monitor blood glucose levels at home and follow-up and establish care with a PCP. History of CAD with stenting to LAD Hypertension Hyperlipidemia Hypomagnesemia, resolved Hospital Course: Patient is a very pleasant 63-year-old female with a past medical history of CAD status post STEMI and stenting of LAD 10/01/2022, hypertension, hyperlipidemia, and [id number] diabetes mellitus. She presented to the emergency department on 10/23/23 with a chief complaint of intractable dizziness and nausea. Upon arrival to our facility patient underwent evaluation in the emergency department. Vital signs upon arrival show blood pressure 139/70, heart rate 65, respiratory rate 18, temp 97.8 F, and SpO2 of 99% on room air. EKG was completed showing sinus bradycardia with T wave inversion in inferior lead III and anteroseptal leads V2 , V3, and V4 with no ST abnormalities noted upon personal review and interpretation. Chest x-ray was negative for acute cardiopulmonary process. CT brain negative for acute intracranial process. Labs were completed and reviewed. CBC was unremarkable. Coagulation profile normal findings. BMP revealing non-anion gap metabolic acidosis with chloride of 111, bicarb 17, and anion gap of 9 and mild hyperglycemia with blood glucose of 187. Magnesium was normal findings at 1.5. Liver profile unremarkable. Troponin was negative at less than 0.012. Patient was given 1.5 L bolus of IV fluids, Ativan, meclizine, scopolamine, Reglan, and Zofran and continues to have persistent intractable dizziness with nausea. She reports resolution of chest pain and states it has been approximately 2 hours since she last vomited. Patient admitted under our services with consultation to neurology and cardiology for evaluation. Cardiology evaluated reducing patient's dose of metoprolol from 50 mg twice daily down to 25 mg twice daily. Neurology evaluated recommending MRI. MRI was completed showing no evidence for acute intracranial process. Patient cleared from cardiology perspective and has been cleared from neurology perspective as well. Patient had elevated hemoglobin A1c of 8.8%. Patient states that she will not take insulin reporting that she has b een discharged on this previously and she cannot afford it and will not take this medication. Patient instead discharged home on metformin 500 mg twice daily and glipizide 5 mg daily in addition to Farxiga 10 mg daily. Patient strongly encouraged to monitor blood glucose levels at home and follow-up and establish care with a PCP. Patient medically stable for discharge at this time. Physical exam: Vital signs reviewed and stable. General: Nontoxic and appears stated age. No acute distress. Derm: Skin warm and dry, normal coloration for ethnicity. Head: Atraumatic, normocephalic and symmetric. Eyes: EOMs intact, no lid lag, and anicteric sclera Mouth: no lip lesions, mucus membranes moist Cardiovascular: regular rate and rhythm with normal S1S2, no murmur, positive posterior tibial pulses bilaterally, and cap refill < 2 seconds. Lungs: Respirations even, regular, and unlabored on room air. Lungs CTA bilaterally, no rhonchi, no rales, no wheezing, and no accessory muscle usage. Abdominal: soft, nontender to palpation, no guarding, no appreciable organomegaly Ext: ROM intact. No gross muscle atrophy, no edema, no contractures Neuro: Speech clear, face symmetrical and CN II-XII grossly intact with no noted focal neuro deficits Psych: Alert and oriented to person, place, time, and situation. Appropriate and pleasant affect. A total of 34 minutes of time were spent preparing this complex discharge summary. Pt was discharged on 10/26/2023 at 12:16 PM. Patient was seen independently by Nurse Practitioner. This document was prepared using GRAYL dictation software. Please allow for errors in deckhand engineer while rare they do occur. I reviewed the documentation as provided by the EDYTA above, who is the original author of this note. I agree with the documented assessment and plan, with the following changes: none Patient Condition at Discharge: Stable Plan - Discharge Summary New Discharge Prescriptions: New metFORMIN HCL 500 mg PO BID 90 Days #180 tablet Metoprolol Tartrate [Lopressor] 25 mg PO BID-W/MEALS 90 Days #180 tab Meclizine [Antivert] 25 mg PO QID PRN #90 tab PRN Reason: Vertigo Folic Acid 1 mg PO DAILY 30 Days #30 tab glipiZIDE 5 mg PO DAILY 90 Days #90 tablet Cyanocobalamin [Vitamin B-12] 1,000 mcg PO DAILY 30 Days #30 tab Continue Nitroglycerin Sl Tabs [Nitrostat] 0.4 mg SUBLINGUAL Q5M PRN #20 tab PRN Reason: Chest Pain Atorvastatin [Lipitor] 80 mg PO DAILY Clopidogrel [Plavix] 75 mg PO DAILY lisinopriL [Zestril] 10 mg PO BID Dapagliflozin Propanediol [Farxiga] 10 mg PO DAILY Discontinued Metoprolol Tartrate [Lopressor] 50 mg PO BID-W/MEALS Discharge Medication List Nitroglycerin Sl Tabs [Nitrostat] 0.4 mg SUBLINGUAL Q5M PRN #20 tab 10/04/22 [R x] Atorvastatin [Lipitor] 80 mg PO DAILY 10/23/23 [History] Clopidogrel [Plavix] 75 mg PO DAILY 10/23/23 [History] Dapagliflozin Propanediol [Farxiga] 10 mg PO DAILY 10/23/23 [History] lisinopriL [Zestril] 10 mg PO BID 10/23/23 [History] metFORMIN HCL 500 mg PO BID 90 Days #180 tablet 10/25/23 [Rx] Cyanocobalamin [Vitamin B-12] 1,000 mcg PO DAILY 30 Days #30 tab 10/26/23 [Rx] Folic Acid 1 mg PO DAILY 30 Days #30 tab 10/26/23 [Rx] Meclizine [Antivert] 25 mg PO QID PRN #90 tab 10/26/23 [Rx] Metoprolol Tartrate [Lopressor] 25 mg PO BID-W/MEALS 90 Days #180 tab 10/26/23 [Rx] glipiZIDE 5 mg PO DAILY 90 Days #90 tablet 10/26/23 [Rx] Follow up Appointment(s)/Referral(s): Josselyn Oates MD [STAFF PHYSICIAN] - 1 Week Barbie Corrales MD [REFERRING] - 1-2 Days (Will need to call and schedule first available appointment at office for establishing care with PCP and post hospitalization follow up) Patient Instructions/Handouts: Vertigo (DC), Basic Carbohydrate Counting (DC), Meal Planning with the Plate Method (DC) Activity/Diet/Wound Care/Special Instructions: Activity: As tolerated. Take breaks as needed. Diet: Heart healthy and carb consistent diet. Avoid salts, or foods with hidden salts such as canned or boxed foods and frozen dinners. Extra salt makes your heart work harder and traps the fluid in your body for longer. Special Instructions: Take all of your medications as directed and remember to keep all of your doctor's appointments and follow-up as needed. You will need to call and schedule first available appointment with Dr. Corrales. You have been started on metformin and glipizide. Your hemoglobin A1c is very elevated at 8.8%. It is important to monitor your blood glucose levels daily and document these findings and a daily log to bring with you to your next appointment at your PCPs as these medications may need adjusted and/or additional medications may need to be added onto your medication regimen. Recommend following a heart healthy and carb consistent diet. Thank you for allowing us to participate in your care, it was truly a pleasure having you for our patient!!! . Discharge Disposition: HOME SELF-CARE
[2023-10-26] MEDS: FOLIC ACID 1 MG TAB PO SCH (12:44)
[2023-10-26] MEDS: CYANOCOBALAMIN 500 MCG TAB PO SCH (12:44)
--- NOTE | 2023-10-26 13:41 | P.PN ---
Subjective Progress Note Date: 10/26/23 Reason for Consult (text): EKG changes, episode of chest pain Chief complaint: dizziness, nausea History of present illness: This is a pleasant 63-year-old female patient who follows in the office with Dr. Oates. She has a history of an NM and October 2022 at which time she underwent PCI of the LAD and also has known moderate disease in the OM1 and mild disease in the RCA, ischemic cardiomyopathy with an EF of 35 to 40% at that time, hypertension, hyperlipidemia, diabetes, does not follow regularly with a primary care physician. Presented with complaints of intractable dizziness with nausea and vomiting. Worse with position changes worse with sitting up and laying completely supine. She felt somewhat anxious and developed some tightness in the chest but this quickly resolved. She has had no symptoms to remind her of what she felt with her NM in 2022. EKG showed sinus mechanism with evidence of old NM consistent with patient's history. Troponins have been less than 0.012, less than 0.012 and 0.023. She has had no further complaints of chest discomfort. She continues to have complaints of dizziness and nausea when she sits up or lies completely flat. She had no complaints of dyspnea on exertion, orthopnea, PND or edema. Her activity levels been stable without any anginal symptoms. She has had no palpitations and no syncope. 10/24 Patient denies having any chest pain. She does complain of dizziness and nausea when she moves. Patient is scheduled for MRI of the brain tomorrow and is followed by neurology. Blood pressure 103/64, heart rate 57, pulse ox 98% on room air. 10/25 Patient is seen today in follow-up. Echocardiogram reveals EF of 55 to 60%. Mild concentric left ventricular hypertrophy. Mild MR and mild TR. Results of echocardiogram reviewed with the patient. She had an MRI of the brain yesterday that showed no acute findings. No chest pain. PHYSICAL EXAMINATION: This is a 63-year-old male in no apparent distress at the time of my examination. VITAL SIGNS: Reviewed. HEENT: Head is atraumatic, normocephalic. Pupils are equal, round. Sclerae anicteric. Conjunctivae are clear. Mucous membranes of the mouth are moist. Neck is supple. There is no elevated jugular venous pressure. No carotid bruit is heard. CHEST EXAMINATION: Clear to auscultation bilaterally. No wheezes rales or rhonchi. Respirations even and nonlabored. HEART EXAMINATION: Heart regular, positive S1 and S2. No S3. No S4. Soft systolic murmur. ABDOMEN: Soft, nontender. Bowel sounds are heard. No organomegaly noted. EXTREMITIES: 2+ peripheral pulses with no evidence of peripheral edema and no c katya tenderness noted. NEUROLOGIC EXAMINATION: Patient is awake, alert and oriented x3. Assessment: #1 brief episode of chest tightness, acute coronary event has been ruled out #2 intractable dizziness with nausea and 2 episodes of emesis #3 hypertension #4 hyperlipidemia #5 diabetes mellitus type 2 #6 ischemic cardiomyopathy with an echocardiogram done in October 2022 showing an EF of 35-40%, per patient most recent echocardiogram did show improvement but the results of this are unavailable Plan: Continue current cardiac medications: Aspirin 81 mg daily, atorvastatin, Plavix, Farxiga, lisinopril Decrease Lopressor to 25 mg twice daily as patient is on the bradycardic side Patient is cleared for discharge from cardiology and may follow-up with Dr. Oates in 1 to 2 weeks. Nurse practitioner note has been reviewed, I agree with documented findings and plan of care. Patient was seen and examined. Objective - Vital Signs Vital signs: Vital Signs Temp 98.3 F 10/26/23 07:00 Pulse 57 L 10/26/23 07:00 Resp 16 10/26/23 07:00 BP 118/65 10/26/23 07:00 Pulse Ox 97 10/26/23 07:00 FiO2 Intake & Output 10/25/23 10/26/23 10/26/23 18:59 06:59 18:59 Intake Total 236 Balance 236 Intake: Oral 236 Other: # Voids 1 2 - Labs CBC & Chem 7: 10/24/23 06:04 10/24/23 06:04 Labs: Abnormal Lab Results - Last 24 Hours (Table) 10/25/23 10/25/23 10/25/23 Range/Units 12:09 17:06 20:25 POC Glucose (mg/dL) 133 H 170 H 126 H (70-110) mg/dL 10/26/23 Range/Units 05:28 POC Glucose (mg/dL) 112 H (70-110) mg/dL
== END 2023-10-26 15:23 | disposition home or self-care (01) ==
LOC: EC 08:45 → 6NMEDSUR 12:55
PROVIDERS: ADMIT Student in an Organized Health Care Education/Training Program; ATTEND Student in an Organized Health Care Education/Training Program
DX: R07.9 Chest pain, unspecified (principal); R42 Dizziness and giddiness; R11.2 Nausea with vomiting, unspecified; E87.20 Acidosis, unspecified; E83.42 Hypomagnesemia; E53.8 Deficiency of other specified B group vitamins; E11.65 Type 2 diabetes mellitus with hyperglycemia; I25.5 Ischemic cardiomyopathy; E78.5 Hyperlipidemia, unspecified; I10 Essential (primary) hypertension; I25.10 Atherosclerotic heart disease of native coronary artery without angina pectoris; I25.2 Old myocardial infarction; Z95.5 Presence of coronary angioplasty implant and graft; Z59.86 Financial insecurity; Z87.891 Personal history of nicotine dependence; Z79.82 Long term (current) use of aspirin; Z79.899 Other long term (current) drug therapy; Z79.84 Long term (current) use of oral hypoglycemic drugs; Z79.02 Long term (current) use of antithrombotics/antiplatelets; Z88.2 Allergy status to sulfonamides
CPT/HCPCS: 96372 ×3; 96376; 96361 ×2; 96365 ×2; 96366 ×2; 96375; 99285; 36415; 93005; 93306; 85379; 80053 ×2; 82607; 82746; 83735 ×2; 84484; 85025; 85027; 85610; 85730; 83036; 71046; 70496; 70450; 70498; 70553; G0378 ×4; J2060; J2765; J3360; J2405; J1650 ×3; Q9957; J3475; Q9967; A9585